=== PATIENT | female | born 1945 | race Caucasian/White ===

== ENCOUNTER 2018-04-15 18:42 | Emergency (ER) | payer MEDICARE, OTHER ==
[2018-04-15 19:40] LABS: ABS Basophils 0.1 10^3/ul (0-0.2); ABS Eosinophils 0.1 10^3/ul (0-0.6); ABS Lymphocytes 2.8 10^3/ul (1.0-4.8); ABS Monocytes 0.5 10^3/ul (0-0.8); ABS Neutrophils 11.1 10^3/ul (1.5-7.7); ABS Nucleated RBC 0 10^3/ul; Eosinophil % 0.9 % (0-6); Hematocrit 37 % (35-47); Hemoglobin 12.3 g/dl (12.0-16.0); Lymphocyte % 19.1 % (25-47); Mean Corpuscular HGB Conc 33 g/dl (31-36); Mean Corpuscular Hemoglobin 26 pg (27-31); Mean Corpuscular Volume 79 fL (80-97); Mean Platelet Volume 8.7 um3 (7.4-10.4); Nucleated Red Blood Cells % 0; Platelet Count 191 10^3/ul (150-450); Red Blood Count 4.67 10^6/ul (4.00-5.40); Red Cell Distribution Width 14 % (10.5-15); White Blood Count 14.6 10^3/ul (3.5-10.8)
[2018-04-15 19:55] LABS: INR 0.94 (0.77-1.02)
[2018-04-15 19:59] LABS: EGFR Non-African American 64.4 (>60)
[2018-04-15] MEDS ORDERED: fentaNYL* 50 MCG/ML 2 ML VIAL (100 MCG VIAL) IV SLOW PU ONE (20:22)
--- OUTSIDE RECORDS SUMMARY | 2018-04-15 20:26 | XMS REPORT | Continuity of Care Document ---
:1945 External Reference #:[id number] Author Name Farzaneh Wilson Care Team Providers Name Role Phone BILLY Camarena Care Team Information Pool Attendant Unavailable Payers Type Date Identification Numbers Payment Provider Subscriber Effective: Policy Number: Family HL Jenni Tidwell 2012 [id number] [employer] Expires: 2012 PayID: [id number] [address] [address] [place] [address] Expires: 2013 Policy Number: [id number] Medicare - Bswny d Jenni Tidwell PayID: [id number] [address] [place] [address] Effective: 2013 Policy Number: [facility] Jenni Tidwell [id number] [facility] Group Number: [id number] [address] [address] PayID: [id number] [place] [address] Effective: 2014 Policy Number: Medicaid After Jenni Tidwell [id number] Medicare Expires: 2017 Group Name: 2 1 [address] PayID: [id number] [place] [address] Advance Directives Type Date Description Status Comment Other Directive 01/12/2014 Health Care Proxy Current and Verified Problems Date Description Provider Status Onset: 06/06/2015 Diabetic peripheral neuropathy BILLY Camarena Active associated with type 2 diabetes mellitus Onset: 06/06/2015 Type 2 diabetes mellitus BILLY Camarena Active Onset: 08/22/2015 Primary fibromyalgia syndrome Khadra Willett, 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 Active Family History Description No Information Available Social History Type Date Description Comments Sex Unknown Lives With Alone lives in [facility], first floor apartment with a walk in shower Diet Healthy, Well Balanced tries to eat a diebetic diet based in the plate method Pets 1 dog cocker spaniel Tobacco Use Start: Unknown Never Smoked Cigarettes ETOH Use Rarely consumes alcohol Recreational Drug Use Denies Drug Use Tobacco Use Start: Unknown Patient has never smoked Smoking Status Reviewed: 04/27/16 Patient has never smoked Enjoy Exercising Enjoys exercising she is walking every day, someties her arthritis slows her down, she thinks this helps her fibromyalgia Allergies, Adverse Reactions, Alerts Description No Known Drug Allergies Medications Medication Date Status Form Strength Qnty SIG Indications Ordering Provider Luis Fernando Banks 02/08 Active Solution 300Unit/M 3ml inject 20 E11.65 Pen-Injec L units, Marco Willett, t increase by 2 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 units every other day until fasting sugars are 80-120...max daily dose 80 units Pen Hominy 02/08 Active Misc 31G X 6 100un use as E11.65 nt mm its directed with Marco Willett, insulin pen 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 once daily and as needed. Freestyle 10/06 Active Kit W/Device 1unit use as E11.9 Shawnti Insulinx Blood s needed. DX Marco Willett, Glucose code E11.9 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 Monitoring System Freestyle 10/01 Active Strips 50uni up to three Shawnti Insulinx Blood ts times a day Marco Willett, Glucose Test or as needed 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 Strips dx code e11.65 Lyrica 05/18 Active Capsules 150mg 60cap take one s capsule by Shortle, mouth twice a FILM MOUNTER day; maximum daily dose=2 Lipitor Active Tablets 20mg 90tab take 1 by s mouth daily Marco Willett, for 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 cholesterol Lyrica 08/06 Active Capsules 75mg 90cap take one M60.80 s capsule by Marco Willett, mouth every 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 morning take two capsules by mouth at bedtime; maximum daily dose=3 Cpap 05/16 Active replacement G47.33 hose, mask Marco Willett, and any other 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 needed parts dx: g47.33 Freestyle Lite 06/19 Active Strip 50uni Use as Shawnti Test ts Directed To Marco Willett, Test Blood 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 Sugars Daily And as Needed Depend 06/11 Active Misc 90uni wear daily nti ts for urine Marco Willett [employer] incontinence, 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 Large/X-Large change as Max Absorb needed Caltrate 600+D 12/07 Active Tablets 600-400mg -Unit Marco Willett 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 Multi Complete 12/07 Active Capsules daily Marco Willett 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 Nabumetone 09/05 Active Tablets 750mg 60tab take two M15.0 s tablets by Marco Willett mouth every 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 morning Cpap 05/19 Active 12CM wear QHS while Marco Willett, sleeping 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 Cymbalta 01/[address] 60mg 30cap take one F33.9 Part s capsule by Marco Willett mouth every 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 day Meclizine HCL 10/19 Hx Tablets 25mg 30tab 1 take by Kyle s mouth tablet Heetderks - 3 times per MD 01/11 day for sensation of motion Oxycodone HCL 11/07 Hx Tablets 5mg 60tab 1 or 2 by M17.9 s mouth three Marco Willett, - times daily 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 06/10 if needed for severe pain, replaces hydrocodone Lyrica 07/02 Hx Capsules 150mg 60cap Take One M60.80 s Capsule By Marco Willett, - Mouth Twice A 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 08/06 Day; Maximum Daily Dose=2 Diabetic Shoes 01/11 Hx 1Pair custom fit 250.00 diabetic Marco Willett - shoes dx 250 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 01/21 Lyrica 01/04 Hx Capsules 75mg 90cap 1 by mouth 729.1 s three times Marco Willett, - daily for 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 07/02 pain /2014 Lyrica 12/18 Hx Capsules 150mg 60cap 1 by mouth 729.1 s twice daily Marco Willett, - 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 01/04 Lyrica 12/04 Hx Capsules 75mg 60cap 1 by mouth 844.9 s twice a day Marco Willett, - 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 12/06 Oxycodone HCL 12/04 Hx Tablets 5mg 20twe 1 or 2 before 844.9 nty bed if needed Marco Willett, - for pain 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 06/06 Clarithromycin 11/07 Hx Tablets 500mg 20tab 1 by mouth s twice a day x Patricia, - 10 days 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 11/07 Triamcinolone 10/15 Hx Cream 0.5% 15gm apply small 782.9 [facility] Acet amount to Marco Willett, - affected area 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 06/10 twice daily /2016 Diabetic Shoes 08/14 Hx 1Pair custom fit diabetic Marco Willett, - shoes 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 08/24 Metformin HCL 06/26 Hx Tablets 500mg 60tab take one s tablet by Marco Willett, - mouth twice a 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 12/18 day with Lyrica 05/15 Hx Capsules 75mg 60cap 1 by mouth 729.1 s twice a day Marco Willett, - 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 10/15 Vitamin B 12/07 Hx Tablets daily Marco Willett, - 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 01/11 Zostavax 06/08 Hx Solution [id number] QS inject 0.65ml V70.0 Rec 0.65ML into Marco Willett, - subqutaneous 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 06/06 tissue once /2014 Free Style Lite 05/04 Hx Test 50uni use to test Strips ts blood sugar Marco Willett, - daily and as [employer]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 10/01 Meclizine HCL 10/18 Hx Tablets 25mg 30tab 1 po q6hr prn 386.11 wnt s dizziness Marco Willett, - 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 05/04 Ondansetron Odt 10/18 Hx Tablets 8mg 30tab 1 po tid prn 386.11 wnt Dispers s nausea Marco Willett, - 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 05/04 Cyclobenzaprine 09/23 Hx Tablets 10mg 30tab 1/2 or 1 po 724.5 Shawnti HCL s tid for Marco Willett, - muscle spasm, [employer]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 06/08 will cause tiredness Lyrica 09/05 Hx Capsules 75mg 60cap 1 po qhs for 729.1 wnti s one week then Marco Willett, - increase to 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 06/08 Metformin HCL 01/31 Hx Tablets 500mg 60tab take 1 tablet s by mouth Marco Willett, - twice a day 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 05/19 with Cymbalta 01/[address] 60mg 1 po qd Part Marco Willett, - [employer]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 01/27 Aleve 01/27 Hx Capsules 220mg 1 or 2 bid 715.09 Marco Willett, - [employer]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 09/05 Medications Administered in Office Medication Date Status Form Strength Qnty SIG Indications Ordering Provider Rabies Vaccine Administered Injection Unknown (Received 014 Elsewhere) Rabies Vaccine Administered Injection Unknown (Received 014 Elsewhere) Rabies Vaccine Administered Injection Unknown (Received 014 Elsewhere) Rabies Vaccine Administered Injection Unknown (Received 014 Elsewhere) Rabies Vaccine Administered Injection Unknown (Received 014 Elsewhere) Immunizations CPT Code Status Date Vaccine Lot # [id number] Given 06/10/2017 Influenza Virus Vaccine, Quadrivalent, 3 Yr > [id number] Quad, Preserv Free 54089 Given 04/27/2016 Influenza Vaccine High Dose PF [id number] 11604 Given 09/16/2015 Tdap (Adacel) [id number] 59186 Given 06/06/2015 Influenza Virus Vaccine, Quadrivalent, 3 Yr > [id number] Quad, Preserv Free 84797 Given 06/11/2014 Influenza Virus Vaccine, Quadrivalent, 3 Yr > [id number] Quad, Preserv Free 40866 Given 06/11/2014 Prevnar-13 Pneumococcal Conjugate Vaccine [id number] 23489 Given 06/08/2013 Pneumovax 23 (PPSV23) 65+ years or high risk 2 to [id number] 66 year old 32256 Given 05/26/2013 Zoster Vaccine 41965 Given 05/04/2013 Influenza Vaccine-Preservative Free 3 Yrs And [id number] Above 49715 Given 05/19/2012 Influenza Vaccine-Preservative Free 3 Yrs And [id number] Above Vital Signs Date Vital Result Comment 03/04/2018 11:11am Weight 263.00 lb Weight 119.297 kg BP Systolic 140 mmHg BP Diastolic 78 mmHg Heart Rate 80 /min Body Temperature 97.5 F Respiratory Rate 16 /min 02/08/2018 11:01am Weight 265.00 lb Weight 120.204 kg BP Systolic 134 mmHg BP Diastolic 78 mmHg Heart Rate 82 /min Body Temperature 97.2 F Respiratory Rate 16 /min 01/11/2018 1:50pm Weight 265.00 lb Weight 120.204 kg BP Systolic 138 mmHg BP Diastolic 92 mmHg Heart Rate 84 /min Body Temperature 98.1 F Respiratory Rate 18 /min O2 % BldC Oximetry 98 % Ra 06/10/2017 11:07am Weight 267.00 lb Weight 121.111 kg BP Systolic 160 mmHg BP Diastolic 90 mmHg Heart Rate 93 /min Body Temperature 98.2 F Respiratory Rate 20 /min O2 % BldC Oximetry 98 % 09/03/2016 3:01pm Weight 262.00 lb Weight 118.843 kg BP Systolic 140 mmHg BP Diastolic 60 mmHg Heart Rate 94 /min Body Temperature 97.6 F Respiratory Rate 16 /min O2 % BldC Oximetry 95 % 04/27/2016 2:59pm Weight 201.00 lb Weight 91.174 kg BP Systolic 142 mmHg BP Diastolic 65 mmHg Heart Rate 80 /min O2 % BldC Oximetry 98 % 03/03/2016 3:15pm Weight 250.00 lb Weight 113.400 kg BP Systolic 144 mmHg BP Diastolic 66 mmHg Heart Rate 88 /min Body Temperature 99.3 F 01/23/2016 11:08am Weight 257.00 lb Weight 116.575 kg BP Systolic 140 mmHg BP Diastolic 80 mmHg Heart Rate 86 /min 12/19/2015 2:17pm Weight 257.00 lb Weight 116.575 kg BP Systolic 138 mmHg BP Diastolic 86 mmHg Heart Rate 84 /min Body Temperature 98.3 F 11/14/2015 1:30pm BP Systolic 120 mmHg BP Diastolic 70 mmHg Heart Rate 59 /min O2 % BldC Oximetry 98 % 11/08/2015 1:57pm Weight 257.00 lb Weight 116.575 kg BP Systolic 164 mmHg BP Diastolic 78 mmHg Heart Rate 88 /min Body Temperature 98.1 F 09/16/2015 1:43pm Weight 250.00 lb Weight 113.400 kg BP Systolic 159 mmHg BP Diastolic 70 mmHg Heart Rate 80 /min Height 61.5 inches 5'1.50" BMI (Body Mass Index) 46.5 kg/m2 06/06/2015 10:32am Weight 248.00 lb Weight 112.493 kg BP Systolic 136 mmHg BP Diastolic 84 mmHg Heart Rate 72 /min 03/14/2015 9:21am Weight 258.00 lb Weight 117.029 kg BP Systolic 150 mmHg BP Diastolic 80 mmHg Heart Rate 72 /min 01/22/2015 11:17am Weight 254.00 lb Weight 115.214 kg BP Systolic 170 mmHg BP Diastolic 78 mmHg Heart Rate 88 /min 01/11/2015 10:12am Weight 251.00 lb Weight 113.854 kg BP Systolic 144 mmHg BP Diastolic 70 mmHg Heart Rate 80 /min 12/18/2014 10:06am Weight 253.00 lb Weight 114.761 kg BP Systolic 172 mmHg BP Diastolic 76 mmHg Heart Rate 72 /min 12/04/2014 10:17am Weight 250.00 lb Weight 113.400 kg BP Systolic 130 mmHg BP Diastolic 88 mmHg Heart Rate 108 /min Body Temperature 98.3 F 11/12/2014 10:01am Weight 248.00 lb Weight 112.493 kg BP Systolic 160 mmHg BP Diastolic 72 mmHg Heart Rate 72 /min 10/15/2014 2:29pm Weight 251.00 lb Weight 113.854 kg BP Systolic 160 mmHg BP Diastolic 84 mmHg Heart Rate 88 /min 08/14/2014 11:43am Weight 258.00 lb Weight 117.029 kg BP Systolic 148 mmHg BP Diastolic 78 mmHg Heart Rate 80 /min 06/11/2014 8:50am Weight 262.00 lb Weight 118.843 kg BP Systolic 168 mmHg BP Diastolic 70 mmHg Heart Rate 84 /min Height 62 inches 5'2" BMI (Body Mass Index) 47.9 kg/m2 05/15/2014 11:03am Weight 259.00 lb Weight 117.482 kg BP Systolic 180 mmHg BP Diastolic 80 mmHg Heart Rate 94 /min 01/12/2014 1:53pm Weight 258.00 lb Weight 117.029 kg BP Systolic 144 mmHg BP Diastolic 86 mmHg Heart Rate 76 /min Body Temperature 97.4 F O2 % BldC Oximetry 96 % 12/07/2013 10:09am Weight 257.00 lb Weight 116.575 kg BP Systolic 142 mmHg BP Diastolic 78 mmHg Heart Rate 88 /min 06/08/2013 9:11am Weight 252.00 lb Weight 114.307 kg BP Systolic 152 mmHg BP Diastolic 78 mmHg Heart Rate 84 /min Height 62 inches 5'2" BMI (Body Mass Index) 46.1 kg/m2 05/04/2013 10:13am Weight 255.00 lb Weight 115.668 kg BP Systolic 136 mmHg BP Diastolic 74 mmHg Heart Rate 80 /min Height 61.25 inches 5'1.25" BMI (Body Mass Index) 47.8 kg/m2 01/17/2013 8:39am Weight 256.00 lb Weight 116.122 kg BP Systolic 166 mmHg BP Diastolic 76 mmHg Heart Rate 92 /min Body Temperature 99.4 F 10/18/2012 11:50am Weight 258.00 lb Weight 117.029 kg BP Systolic 140 mmHg BP Diastolic 90 mmHg Heart Rate 80 /min Body Temperature 98.2 F 09/23/2012 12:00pm Weight 259.00 lb Weight 117.482 kg BP Systolic 130 mmHg BP Diastolic 70 mmHg Heart Rate 100 /min Body Temperature 97.6 F 09/05/2012 2:56pm Weight 257.00 lb Weight 116.575 kg BP Systolic 140 mmHg BP Diastolic 84 mmHg Heart Rate 80 /min 05/19/2012 10:11am Weight 250.00 lb Weight 113.400 kg BP Systolic 134 mmHg BP Diastolic 76 mmHg Heart Rate 108 /min Body Temperature 97.3 F 03/18/2012 10:12am Weight 247.00 lb Weight 112.039 kg BP Systolic 150 mmHg BP Diastolic 90 mmHg Heart Rate 100 /min 01/28/2012 2:11pm Weight 244.00 lb Weight 110.678 kg BP Systolic 130 mmHg BP Diastolic 74 mmHg Heart Rate 88 /min Height 62 inches 5'2" BMI (Body Mass Index) 44.6 kg/m2 O2 % BldC Oximetry 98 % Results Test Date Facility Test Result H/L Range Note Laboratory test 03/04/2018 [facility] Vitamin D 17.9 ng/mL Low 20-50 1 finding [phone] Total 25(Oh) Erythrocyte Sed Rate 48 mm/Hr High 0-40 2 Vitamin B12 473 pg/mL 180-914 3 Laboratory test 01/11/2018 [facility] TSH (Thyroid 2.22 mcIU/mL 0.34-5.60 4 finding [phone] Stim Horm) Hemoglobin A1c (Glyco HGB) 9.9 % High 4.0-5.6 5 Hepatitis C Antibody Nonreactive Nonreactive 6 CBC Auto Diff 01/11/2018 [facility] White Blood 10.6 10^3/uL 3.5-10.8 [phone] Count Red Blood Count 4.93 10^6/uL 4.00-5.40 Hemoglobin 13.3 g/dL 12.0-16.0 Hematocrit 40 % 35-47 Mean Corpuscular Volume 80 fL 80-97 Mean Corpuscular Hemoglobin 27 pg 27-31 Mean Corpuscular HGB Conc 34 g/dL 31-36 Red Cell Distribution Width 14 % 10.5-15 Platelet Count 213 10^3/uL 150-450 Mean Platelet Volume 9.2 um3 7.4-10.4 Abs Neutrophils 7.2 10^3/uL 1.5-7.7 Abs Lymphocytes 2.8 10^3/uL 1.0-4.8 Abs Monocytes 0.4 10^3/uL 0-0.8 Abs Eosinophils 0.2 10^3/uL 0-0.6 Abs Basophils 0.1 10^3/uL 0-0.2 Abs Nucleated RBC 0 10^3/uL Granulocyte % 67.8 % 38-83 Lymphocyte % 26.3 % 25-47 Monocyte % 3.7 % 0-7 Eosinophil % 1.5 % 0-6 Basophil % 0.7 % 0-2 Nucleated Red Blood Cells % 0.1 Lipid Profile 01/11/2018 [facility] Triglycerides 384 mg/dL 7 (Trig/Chol/HDL) [phone] Cholesterol 186 mg/dL 8 HDL Cholesterol 67.0 mg/dL 9 LDL Cholesterol 42 mg/dL 10 Comp Metabolic Panel 01/11/2018 [facility] Sodium 138 mmol/L 135-145 [phone] Potassium 4.1 mmol/L 3.5-5.0 Chloride 101 mmol/L 101-111 Co2 Carbon Dioxide 27 mmol/L 22-32 Anion Gap 10 mmol/L 2-11 Glucose 227 mg/dL High 70-100 Blood Urea Nitrogen 20 mg/dL 6-24 Creatinine 0.70 mg/dL 0.51-0.95 BUN/Creatinine Ratio 28.6 High 8-20 Calcium 10.3 mg/dL 8.6-10.3 Total Protein 7.1 g/dL 6.4-8.9 Albumin 3.9 g/dL 3.2-5.2 Globulin 3.2 g/dL 2-4 Albumin/Globulin Ratio 1.2 1-3 Total Bilirubin 0.30 mg/dL 0.2-1.0 Alkaline Phosphatase 121 U/L High 34-104 Alt 18 U/L 7-52 Ast 17 U/L 13-39 Egfr Non- 82.7 >60 Egfr 106.4 >60 11 Laboratory test 09/21/2017 In House Lab Glucose By 347 High 78-110 finding [phone] Moniter Statin 12/25/2016 [facility] Ast (Sgot) 21 U/L 13- 39 12 [phone] Alt 20 U/L 7-52 13 Lipid Profile 12/25/2016 [facility] Triglycerides 383 mg/dL 14 (Trig/Chol/HDL) [phone] Cholesterol 169 mg/dL 15 HDL Cholesterol 68.5 mg/dL 16 LDL Cholesterol 24 mg/dL 17 CBC Auto 09/03/2016 [facility] White Blood 11.1 10^3/ uL High 3.5-10.8 Diff [phone] Count Red Blood Count 4.98 10^6/uL 4.0-5.4 Hemoglobin 13.1 g/dL 12.0-16.0 Hematocrit 40 % 35-47 Mean Corpuscular Volume 81 fL 80-97 Mean Corpuscular Hemoglobin 26 pg Low 27-31 Mean Corpuscular HGB Conc 33 g/dL 31-36 Red Cell Distribution Width 15 % 10.5-15 Platelet Count 201 10^3/uL 150-450 Mean Platelet Volume 9 um3 7.4-10.4 Abs Neutrophils 7.2 10^3/uL 1.5-7.7 Abs Lymphocytes 3.3 10^3/uL 1.0-4.8 Abs Monocytes 0.5 10^3/uL 0-0.8 Abs Eosinophils 0.1 10^3/uL 0-0.6 Abs Basophils 0 10^3/uL 0-0.2 Abs Nucleated RBC 0 10^3/uL Granulocyte % 64.6 % 38-83 Lymphocyte % 29.6 % 25-47 Monocyte % 4.2 % 1-9 Eosinophil % 1.3 % 0-6 Basophil % 0.3 % 0-2 Nucleated Red Blood Cells % 0 Comp Metabolic Panel 09/03/2016 [facility] Sodium 136 mmol/L 133-145 [phone] Potassium 4.4 mmol/L 3.5-5.0 Chloride 99 mmol/L Low 101-111 Co2 Carbon Dioxide 31 mmol/L 22-32 Anion Gap 6 mmol/L 2-11 Glucose 172 mg/dL High 70-100 Blood Urea Nitrogen 22 mg/dL 6-24 Creatinine 0.83 mg/dL 0.51-0.95 BUN/Creatinine Ratio 26.5 High 8-20 Calcium 10.5 mg/dL High 8.6-10.3 Total Protein 7.3 g/dL 6.4-8.9 Albumin 4.1 g/dL 3.2-5.2 Globulin 3.2 g/dL 2-4 Albumin/Globulin Ratio 1.3 1-3 Total Bilirubin 0.30 mg/dL 0.2-1.0 Alkaline Phosphatase 104 U/L 34-104 Alt 17 U/L 7-52 Ast 18 U/L 13-39 Egfr Non- 68.4 >60 Egfr 87.9 >60 18 Lipid Profile 09/03/2016 [facility] Triglycerides 639 mg/dL 19 (Trig/Chol/HDL) [phone] Cholesterol 243 mg/dL 20 HDL Cholesterol 72.1 mg/dL 21 LDL Cholesterol (SEE NOTE) mg/dL 22 Laboratory test 09/03/2016 [facility] Hemoglobin A1c 6.9 % High Less 23 finding [phone] (Glyco HGB) than 6.0 Laboratory test 04/27/2016 [facility] Hemoglobin A1c 6.6 % High Less 24 finding [phone] (Glyco HGB) than 6.0 Lipid Profile 04/27/2016 [facility] Triglycerides 391 25 (Trig/Chol/HDL) [phone] mg/dL Cholesterol 203 mg/dL 26 HDL Cholesterol 68.6 mg/dL 27 LDL Cholesterol 56 mg/dL 28 Basic Metabolic 04/27/2016 [facility] Sodium 136 mmol /L 133-145 Panel [phone] Potassium 4.6 mmol/L 3.5-5.0 Chloride 98 mmol/L Low 101-111 Co2 Carbon Dioxide 31 mmol/L 22-32 Anion Gap 7 mmol/L 2-11 Glucose 117 mg/dL High 70-100 Blood Urea Nitrogen 26 mg/dL High 6-24 Creatinine 0.89 mg/dL 0.51-0.95 BUN/Creatinine Ratio 29.2 High 8-20 Calcium 10.0 mg/dL 8.6-10.3 Egfr Non- 63.1 >60 Egfr 81.1 >60 29 Statin 11/06/2015 [facility] Ast (Sgot) 16 U/L 13- 39 [phone] Alt (SGPT) 18 U/L 7-52 Lipid Profile 11/06/2015 [facility] Triglycerides 237 mg/dL 30 (Trig/Chol/HDL) [phone] Cholesterol 163 mg/dL 31 HDL Cholesterol 75.8 mg/dL 32 LDL Cholesterol 40 mg/dL 33 Laboratory test 09/21/2015 [facility] Calcium 10.1 mg /dL 8.6-10.3 finding [phone] Pthi 09/21/2015 [facility] Calcium (PTH 10.2 mg/dL 8.6-10.3 [phone] Intact) PTH Intact 8.8 pmol/L 1.3-9.3 Laboratory test 09/21/2015 [facility] Calcium 5.17 mg /dL 4.65-5.28 finding [phone] Ionized CBC Auto Diff 09/16/2015 [facility] White Blood 8.9 10^3/uL 3.5-10.8 [phone] Count Red Blood Count 4.72 10^6/uL 4.0-5.4 Hemoglobin 12.7 g/dL 12.0-16.0 Hematocrit 39 % 35-47 Mean Corpuscular Volume 82 fL 80-97 Mean Corpuscular Hemoglobin 27 pg 27-31 Mean Corpuscular HGB Conc 33 g/dL 31-36 Red Cell Distribution Width 14 % 10.5-15 Platelet Count 194 10^3/uL 150-450 Mean Platelet Volume 9 um3 7.4-10.4 Abs Neutrophils 5.7 10^3/uL 1.5-7.7 Abs Lymphocytes 2.7 10^3/uL 1.0-4.8 Abs Monocytes 0.4 10^3/uL 0-0.8 Abs Eosinophils 0.1 10^3/uL 0-0.6 Abs Basophils 0 10^3/uL 0-0.2 Abs Nucleated RBC 0.01 10^3/uL Granulocyte % 64.3 % 38-83 Lymphocyte % 30.1 % 25-47 Monocyte % 4.1 % 1-9 Eosinophil % 1.3 % 0-6 Basophil % 0.2 % 0-2 Nucleated Red Blood Cells % 0.1 Comp Metabolic Panel 09/16/2015 [facility] Sodium 136 mmol/L 133-145 [phone] Potassium 4.2 mmol/L 3.5-5.0 Chloride 98 mmol/L Low 101-111 Glucose 141 mg/dL High 70-100 Blood Urea Nitrogen 26 mg/dL High 6-24 Creatinine 0.86 mg/dL 0.51-0.95 BUN/Creatinine Ratio 30.2 High 8-20 Calcium 10.6 mg/dL High 8.6-10.3 Total Protein 7.1 g/dL 6.4-8.9 Albumin 4.1 g/dL 3.2-5.2 Globulin 3.0 g/dL 2-4 Albumin/Globulin Ratio 1.4 1-3 Total Bilirubin 0.30 mg/dL 0.2-1.0 Alkaline Phosphatase 93 U/L 34-104 Alt 15 U/L 7-52 Ast 16 U/L 13-39 Egfr Non- 65.8 >60 Egfr 84.6 >60 34 Co2 Carbon Dioxide 31 mmol/L 22-32 Anion Gap 7 mmol/L 2-11 Lipid Profile 09/16/2015 [facility] Triglycerides 552 mg/dL 35 (Trig/Chol/HDL) [phone] Cholesterol 248 mg/dL 36 HDL Cholesterol 60.1 mg/dL 37 Laboratory test 09/16/2015 [facility] TSH (Thyroid 1.17 ?IU/mL 0.34-5.60 38 finding [phone] Stim Horm) Hemoglobin A1c (Glyco HGB) 6.6 % High Less than 6.0 39 Laboratory test 06/09/2015 [facility] C. difficile SEE RESULT 40 finding [phone] PCR BELOW CBC Auto Diff 06/09/2015 [facility] White Blood 5.9 10^3/uL 4.8-10 [phone] Count .8 Red Blood Count 5.01 10^6/uL 4.0-5.4 Hemoglobin 13.5 g/dL 12.0-16.0 Hematocrit 41 % 35-47 Mean Corpuscular Volume 82 fL 80-97 Mean Corpuscular Hemoglobin 27 pg 27-31 Mean Corpuscular HGB Conc 33 g/dL 31-36 Red Cell Distribution Width 14 % 10.5-15 Platelet Count 186 10^3/uL 150-450 Mean Platelet Volume 8 um3 7.4-10.4 Abs Neutrophils 3.4 10^3/uL 1.5-7.7 Abs Lymphocytes 1.9 10^3/uL 1.0-4.8 Abs Monocytes 0.5 10^3/uL 0-0.8 Abs Eosinophils 0.1 10^3/uL 0-0.6 Abs Basophils 0 10^3/uL 0-0.2 Abs Nucleated RBC 0 10^3/uL Granulocyte % 57.8 % 38-83 Lymphocyte % 31.8 % 25-47 Monocyte % 8.6 % 1-9 Eosinophil % 1.5 % 0-6 Basophil % 0.3 % 0-2 Nucleated Red Blood Cells % 0 Comp Metabolic Panel 06/09/2015 [facility] Sodium 136 mmol/L 133-145 [phone] Potassium 3.7 mmol/L 3.5-5.0 Chloride 101 mmol/L 101-111 Co2 Carbon Dioxide 27 mmol/L 22-32 Anion Gap 8 mmol/L 2-11 Glucose 123 mg/dL High 70-100 Blood Urea Nitrogen 21 mg/dL 6-24 Creatinine 1.01 mg/dL High 0.51-0.95 BUN/Creatinine Ratio 20.8 High 8-20 Calcium 9.8 mg/dL 8.6-10.3 Total Protein 7.5 g/dL 6.4-8.9 Albumin 4.0 g/dL 3.2-5.2 Globulin 3.5 g/dL 2-4 Albumin/Globulin Ratio 1.1 1-3 Total Bilirubin 0.30 mg/dL 0.2-1.0 Alkaline Phosphatase 91 U/L 34-104 Alt 19 U/L 7-52 Ast 23 U/L 13-39 Egfr Non- 54.7 >60 Egfr 70.3 >60 41 Laboratory test 06/09/2015 [facility] Lipase 16 U/L 11.0-82.0 finding [phone] C Reactive Protein 67.96 mg/L High < 5.00 42 Lactic Acid 1.8 mmol/L 0.5-2.2 Urinalysis Profile 06/09/2015 [facility] Urine Color Yellow [phone] Urine Appearance Cloudy Urine Specific Brodnax 1.018 1.010-1.030 Urine pH 5.0 5-9 Urine Urobilinogen Negative Negative Urine Ketones Negative Negative Urine Protein Negative Negative Urine Leukocytes 3+ Negative Urine Blood 1+ Negative Urine Nitrite Negative Negative Urine Bilirubin Negative Negative Urine Glucose Negative Negative Urine White Blood Cell 3+(>20/hpf) Absent Urine Red Blood Cell 2+(6-10/hpf) Absent Urine Bacteria 1+ Absent Urine Squamous Epithelial Cell Present Absent Urine Hyaline Casts Present Absent Laboratory test 06/09/2015 [facility] Urine Culture SEE RESULT 43 finding [phone] BELOW CBC Auto Diff 03/14/2015 [facility] White Blood 8.4 10^3/uL 4.8-10 [phone] Count .8 Red Blood Count 4.98 10^6/uL 4.0-5.4 Hemoglobin 13.2 g/dL 12.0-16.0 Hematocrit 41 % 35-47 Mean Corpuscular Volume 82 fL 80-97 Mean Corpuscular Hemoglobin 26 pg Low 27-31 Mean Corpuscular HGB Conc 32 g/dL 31-36 Red Cell Distribution Width 14 % 10.5-15 Platelet Count 215 10^3/uL 150-450 Mean Platelet Volume 9 um3 7.4-10.4 Abs Neutrophils 5.4 10^3/uL 1.5-7.7 Abs Lymphocytes 2.5 10^3/uL 1.0-4.8 Abs Monocytes 0.4 10^3/uL 0-0.8 Abs Eosinophils 0.1 10^3/uL 0-0.6 Abs Basophils 0 10^3/uL 0-0.2 Abs Nucleated RBC 0 10^3/uL Granulocyte % 63.8 % 38-83 Lymphocyte % 29.4 % 25-47 Monocyte % 4.6 % 1-9 Eosinophil % 1.7 % 0-6 Basophil % 0.5 % 0-2 Nucleated Red Blood Cells % 0 Laboratory test 03/14/2015 [facility] Hemoglobin A1c 7.2 % High Less than 44 finding [phone] (Glyco HGB) 6.0 Basic Metabolic 03/14/2015 [facility] Sodium 138 133-145 Panel [phone] mmol/L Potassium 4.5 mmol/L 3.5-5.0 Chloride 101 mmol/L 101-111 Co2 Carbon Dioxide 28 mmol/L 22-32 Anion Gap 9 mmol/L 2-11 Glucose 147 mg/dL High 70-100 Blood Urea Nitrogen 20 mg/dL 6-24 Creatinine 0.79 mg/dL 0.51-0.95 BUN/Creatinine Ratio 25.3 High 8-20 Calcium 10.3 mg/dL 8.6-10.3 Egfr Non- 72.6 >60 Egfr 93.4 >60 45 Comp Metabolic Panel 11/12/2014 [facility] Sodium 137 mmol/L 133-145 [phone] Potassium 4.7 mmol/L 3.5-5.0 Chloride 99 mmol/L Low 101-111 Co2 Carbon Dioxide 29 mmol/L 22-32 Anion Gap 9 mmol/L 2-11 Glucose 136 mg/dL High 70-100 Blood Urea Nitrogen 18 mg/dL 6-24 Creatinine 0.79 mg/dL 0.51-0.95 BUN/Creatinine Ratio 22.8 High 8-20 Calcium 10.4 mg/dL High 8.6-10.3 Total Protein 7.2 g/dL 6.4-8.9 Albumin 4.1 g/dL 3.2-5.2 Globulin 3.1 g/dL 2-4 Albumin/Globulin Ratio 1.3 1-3 Total Bilirubin 0.40 mg/dL 0.2-1.0 Alkaline Phosphatase 103 U/L 34-104 Alt 17 U/L 7-52 Ast 20 U/L 13-39 Egfr Non- 72.8 >60 Egfr 93.6 >60 46 Laboratory test 11/12/2014 [facility] Hemoglobin A1c 6.8 % High Less than 47 finding [phone] 6.0 CBC No Diff 11/12/2014 [facility] White Blood 9.9 4.8-10.8 [phone] Count 10^3/uL Red Blood Count 5.11 10^6/uL 4.0-5.4 Hemoglobin 14.1 g/dL 12.0-16.0 Hematocrit 42 % 35-47 Mean Corpuscular Volume 81 fL 80-97 Mean Corpuscular Hemoglobin 28 pg 27-31 Mean Corpuscular HGB Conc 34 g/dL 31-36 Red Cell Distribution Width 15 % 10.5-15 Platelet Count 226 10^3/uL 150-450 Mean Platelet Volume 9 um3 7.4-10.4 Laboratory test 08/28/2014 [facility] Calcium 11.0 mg /dL High 8.6-10.3 finding [phone] Pthi 08/28/2014 [facility] PTH Intact 5.6 pmol/L 1.3-9.3 [phone] Calcium (PTH Intact) 11.0 mg/dL High 8.6-10.3 Basic Metabolic 08/28/2014 [facility] Sodium 138 mmol /L 133-145 Panel [phone] Potassium 4.1 mmol/L 3.5-5.0 Chloride 100 mmol/L Low 101-111 Co2 Carbon Dioxide 28 mmol/L 22-32 Anion Gap 10 mmol/L 2-11 Glucose 145 mg/dL High 70-100 Blood Urea Nitrogen 19 mg/dL 6-24 Creatinine 1.10 mg/dL High 0.51-0.95 BUN/Creatinine Ratio 17.3 8-20 Egfr Non- 49.7 >60 Egfr 63.9 >60 48 Basic Metabolic 08/14/2014 [facility] Sodium 136 mmol /L 133-145 Panel [phone] Potassium 4.4 mmol/L 3.5-5.0 Chloride 98 mmol/L Low 101-111 Co2 Carbon Dioxide 31 mmol/L 22-32 Anion Gap 7 mmol/L 2-11 Glucose 95 mg/dL 70-100 Blood Urea Nitrogen 18 mg/dL 6-24 Creatinine 0.75 mg/dL 0.51-0.95 BUN/Creatinine Ratio 24.0 High 8-20 Calcium 11.2 mg/dL High 8.6-10.3 Egfr Non- 77.3 >60 Egfr 99.4 >60 49 Urinalysis Profile 08/09/2014 [facility] Urine Color Straw [phone] Urine Appearance Cloudy Urine Specific [place] 1.018 1.010-1.030 Urine pH 5.0 5-9 Urine Urobilinogen Negative Negative Urine Ketones Negative Negative Urine Protein 2+(100 mg/dL) Negative Urine Leukocytes Negative Negative Urine Blood 3+ Negative * * Negative 50 Urine Nitrite Negative Negative Urine Bilirubin Negative Negative Urine Glucose Negative Negative Urine Red Blood Cell 3+(>10/hpf) Absent Urine Squamous Epithelial Cell Present Absent Laboratory test 08/09/2014 [facility] C Reactive 28.08 mg/L High < 5.00 51 finding [phone] Protein Comp Metabolic 08/09/2014 [facility] Sodium 133 mmol/ L 133-145 Panel [phone] Potassium 4.0 mmol/L 3.5-5.0 Chloride 94 mmol/L Low 101-111 Co2 Carbon Dioxide 28 mmol/L 22-32 Anion Gap 11 mmol/L 2-11 Glucose 165 mg/dL High 70-100 Blood Urea Nitrogen 27 mg/dL High 6-24 Creatinine 0.97 mg/dL High 0.51-0.95 BUN/Creatinine Ratio 27.8 High 8-20 Calcium 10.3 mg/dL 8.6-10.3 Total Protein 7.4 g/dL 6.4-8.9 Albumin 4.1 g/dL 3.2-5.2 Globulin 3.3 g/dL 2-4 Albumin/Globulin Ratio 1.2 1-3 Total Bilirubin 0.40 mg/dL 0.2-1.0 Alkaline Phosphatase 89 U/L 34-104 Alt 23 U/L 7-52 Ast 24 U/L 13-39 Egfr Non- 57.5 >60 Egfr 73.9 >60 52 CBC Auto 08/09/2014 [facility] White Blood 14.6 10^3/ uL High 4.8-10.8 Diff [phone] Count Red Blood Count 4.95 10^6/uL 4.0-5.4 Hemoglobin 13.2 g/dL 12.0-16.0 Hematocrit 40 % 35-47 Mean Corpuscular Volume 81 fL 80-97 Mean Corpuscular Hemoglobin 27 pg 27-31 Mean Corpuscular HGB Conc 33 g/dL 31-36 Red Cell Distribution Width 15 % 10.5-15 Platelet Count 204 10^3/uL 150-450 Mean Platelet Volume 9 um3 7.4-10.4 Abs Neutrophils 11.5 10^3/uL High 1.5-7.7 Abs Lymphocytes 2.2 10^3/uL 1.0-4.8 Abs Monocytes 0.8 10^3/uL 0-0.8 Abs Eosinophils 0.2 10^3/uL 0-0.6 Abs Basophils 0.1 10^3/uL 0-0.2 Abs Nucleated RBC 0.01 10^3/uL Granulocyte % 78.4 % 38-83 Lymphocyte % 14.7 % Low 25-47 Monocyte % 5.2 % 1-9 Eosinophil % 1.1 % 0-6 Basophil % 0.6 % 0-2 Nucleated Red Blood Cells % 0.1 Laboratory test 06/11/2014 [facility] Hemoglobin A1c 7.3 % High Less than 53 finding [phone] 6.0 Lipid Profile 06/11/2014 [facility] Triglycerides 348 54 (Trig/Chol/HDL) [phone] mg/dL Cholesterol 202 mg/dL 55 HDL Cholesterol 66.9 mg/dL 56 LDL Cholesterol 66 mg/dL 57 Urine DIP 06/11/2014 In House Lab Specific [place] 1.025 High 1.01-1.02 [phone] Urine pH 5 5-6 Leukocytes NEG Neg Urine Nitrites NEG Neg Total Protein, Urine +30 High Neg Urine Glucose NORM Norm Urine Ketones NEG Neg Urobilinogen NORM Norm Urine Bilirubin NEG Neg Urine Blood 250 High Neg CBC Auto Diff 05/15/2014 [facility] White Blood 10.6 10^3/uL 4.8-10.8 [phone] Count Red Blood Count 4.95 10^6/uL 4.0-5.4 Hemoglobin 13.2 g/dL 12.0-16.0 Hematocrit 40 % 35-47 Mean Corpuscular Volume 80 fL 80-97 Mean Corpuscular Hemoglobin 27 pg 27-31 Mean Corpuscular HGB Conc 33 g/dL 31-36 Red Cell Distribution Width 14 % 10.5-15 Platelet Count 230 10^3/uL 150-450 Mean Platelet Volume 9 um3 7.4-10.4 Abs Neutrophils 7.1 10^3/uL 1.5-7.7 Abs Lymphocytes 2.8 10^3/uL 1.0-4.8 Abs Monocytes 0.4 10^3/uL 0-0.8 Abs Eosinophils 0.1 10^3/uL 0-0.6 Abs Basophils 0 10^3/uL 0-0.2 Abs Nucleated RBC 0.01 10^3/uL Granulocyte % 67.6 % 38-83 Lymphocyte % 26.8 % 25-47 Monocyte % 4.1 % 1-9 Eosinophil % 1.1 % 0-6 Basophil % 0.4 % 0-2 Nucleated Red Blood Cells % 0.1 Comp Metabolic Panel 05/15/2014 [facility] Sodium 137 mmol/L 133-145 [phone] Potassium 4.4 mmol/L 3.7-5.6 Chloride 98 mmol/L Low 101-111 Co2 Carbon Dioxide 31 mmol/L 22-32 Anion Gap 8 mmol/L 2-11 Glucose 165 mg/dL High 70-100 Blood Urea Nitrogen 17 mg/dL 6-24 Creatinine 0.70 mg/dL 0.51-0.95 BUN/Creatinine Ratio 24.3 High 8-20 Calcium 10.5 mg/dL High 8.6-10.3 Total Protein 6.9 g/dL 6.4-8.9 Albumin 3.9 g/dL 3.2-5.2 Globulin 3.0 g/dL 2-4 Albumin/Globulin Ratio 1.3 1-3 Total Bilirubin 0.30 mg/dL 0.2-1.0 Alkaline Phosphatase 98 U/L 34-104 Alt 21 U/L 7-52 Ast 19 U/L 13-39 Egfr Non- 83.7 >60 Egfr 107.7 >60 58 Laboratory test 05/15/2014 [facility] C Reactive 28.47 mg/L High < 5.00 59 finding [phone] Protein Anti Double Stranded Dna Negative Negative Cyclic Citrullinated Pept IgG <15.6 U 60 Creatine Kinase 53 U/L 10-223 Lyme Western 05/15/2014 [facility] Lyme Disease Negative Negative Blot [phone] IgG Ab WB Lyme Disease IgG Bands Present No bands detecte <SEE NOTE> kDa 61 Lyme Disease IgM Ab WB Negative Negative Lyme Disease IgM Bands Present No bands detecte <SEE NOTE> kDa 62 Lyme Disease Interpretation See Comment 63 Laboratory test 05/15/2014 [facility] Rheumatoid Factor <15 IU/mL <15 64 finding [phone] Bess (Anti-Nuclear AB) Screen Negative Negative Comp Metabolic Panel 12/07/2013 [facility] Sodium 137 mmol/L 133-145 [phone] Potassium 4.6 mmol/L 3.7-5.6 Chloride 99 mmol/L Low 101-111 Co2 Carbon Dioxide 30 mmol/L 22-32 Anion Gap 8 mmol/L 2-11 Glucose 117 mg/dL High 70-100 Blood Urea Nitrogen 20 mg/dL 6-24 Creatinine 0.72 mg/dL 0.51-0.95 BUN/Creatinine Ratio 27.8 High 8-20 Calcium 10.1 mg/dL 8.6-10.3 Total Protein 7.3 g/dL 6.4-8.9 Albumin 4.0 g/dL 3.2-5.2 Globulin 3.3 g/dL 2-4 Albumin/Globulin Ratio 1.2 1-3 Total Bilirubin 0.30 mg/dL 0.2-1.0 Alkaline Phosphatase 100 U/L 34-104 Alt 17 U/L 7-52 Ast 18 U/L 13-39 Egfr Non- 81.0 >60 Egfr 104.2 >60 65 CBC Auto Diff 12/07/2013 [facility] White Blood 10.2 10^3/uL 4.8-10.8 [phone] Count Red Blood Count 4.96 10^6/uL 4.0-5.4 Hemoglobin 13.2 g/dL 12.0-16.0 Hematocrit 39 % 35-47 Mean Corpuscular Volume 79 fL Low 80-97 Mean Corpuscular Hemoglobin 27 pg 27-31 Mean Corpuscular HGB Conc 34 g/dL 31-36 Red Cell Distribution Width 14 % 10.5-15 Platelet Count 219 10^3/uL 150-450 Mean Platelet Volume 9 um3 7.4-10.4 Abs Neutrophils 6.5 10^3/uL 1.5-7.7 Abs Lymphocytes 3.0 10^3/uL 1.0-4.8 Abs Monocytes 0.5 10^3/uL 0-0.8 Abs Eosinophils 0.1 10^3/uL 0-0.6 Abs Basophils 0 10^3/uL 0-0.2 Abs Nucleated RBC 0.01 10^3/uL Granulocyte % 63.8 % 38-83 Lymphocyte % 29.7 % 25-47 Monocyte % 5.0 % 1-9 Eosinophil % 1.1 % 0-6 Basophil % 0.4 % 0-2 Nucleated Red Blood Cells % 0.1 Lipid Profile 12/07/2013 [facility] Triglycerides 237 mg/dL 66 (Trig/Chol/HDL) [phone] Cholesterol 217 mg/dL 67 HDL Cholesterol 72.3 mg/dL 68 LDL Cholesterol 97 mg/dL 69 Laboratory test 12/07/2013 [facility] TSH (Thyroid 2.58 IU/mL 0.34-5.60 finding [phone] Stimulating Horm) Hemoglobin A1c 7.1 % High Less than 6.0 70 Human Papilloma 06/09/2013 [facility] Human Papillomavirus See Comment 71 [phone] Source Human Papillomavirus High Risk Negative Negative 72 Laboratory test 06/08/2013 [facility] Cytology RUN DATE: 73 finding [phone] SEE NOTE> Urine DIP 06/08/2013 In House Lab Leukocytes neg Neg [phone] Urine Nitrites neg Neg Urine pH 5 5-6 Total Protein, Urine 1+ High Neg Urine Glucose norm Norm Urine Ketones neg Neg Urobilinogen norm Norm Urine Bilirubin neg Neg Urine Blood 250 High Neg Specific Brodn[place] 1.025 High 1.01-1.02 CBC Auto Diff 05/04/2013 [facility] White Blood 10.2 10^3/uL 4.8-10.8 [phone] Count Red Blood Count 5.17 10^6/uL 4.0-5.4 Hemoglobin 13.1 g/dL 12.0-16.0 Hematocrit 42 % 35-47 Mean Corpuscular Volume 81 fL 80-97 Mean Corpuscular Hemoglobin 25 pg Low 27-31 Mean Corpuscular HGB Conc 31 g/dL 31-36 Red Cell Distribution Width 14 % 10.5-15 Platelet Count 213 10^3/uL 150-450 Mean Platelet Volume 9 um3 7.4-10.4 Abs Neutrophils 7.0 10^3/uL 1.5-7.7 Abs Lymphocytes 2.6 10^3/uL 1.0-4.8 Abs Monocytes 0.4 10^3/uL 0-0.8 Abs Eosinophils 0.1 10^3/uL 0-0.6 Abs Basophils 0 10^3/uL 0-0.2 Abs Nucleated RBC 0.01 10^3/uL Granulocyte % 69.1 % 38-83 Lymphocyte % 25.6 % 25-47 Monocyte % 3.8 % 1-9 Eosinophil % 1.3 % 0-6 Basophil % 0.2 % 0-2 Nucleated Red Blood Cells % 0.1 Comp Metabolic Panel 05/04/2013 [facility] Sodium 141 mmol/L 133-145 [phone] Potassium 4.3 mmol/L 3.5-5.0 Chloride 103 mmol/L 101-111 Co2 Carbon Dioxide 29.0 mmol/L 22-32 Anion Gap 9.0 mmol/L 2-11 Glucose 165 mg/dL High 70-100 Blood Urea Nitrogen 17 mg/dL 6-24 Creatinine 0.70 mg/dL 0.50-1.40 BUN/Creatinine Ratio 24.3 High 8-20 Calcium 10.2 mg/dL High 8.1-9.9 Total Protein 6.7 g/dL 6.2-8.1 Albumin 3.6 g/dL 3.2-5.2 Globulin 3.1 g/dL 2-4 Albumin/Globulin Ratio 1.2 1-3 Total Bilirubin 0.8 mg/dL 0.4-1.5 Alkaline Phosphatase 102 U/L 30-110 Alt 23 U/L 14-54 Ast 25 U/L 12-42 Egfr Non- 84.0 >60 Egfr 108.0 >60 74 Laboratory 05/04/2013 [facility] TSH (Thyroid 1.90 0.34-5.60 test finding [phone] Stimulating miu/mL Horm) Lipid Profile 05/04/2013 [facility] Triglycerides 221 mg/dL High 40-200 (Trig/Chol/HDL [phone] ) Cholesterol 212 mg/dL High Less than 200 HDL Cholesterol 73 mg/dL High 40-60 75 Cholesterol/HDL Ratio 2.9 Average 1-4.44 LDL Cholesterol 94.8 Less Than 100 76 Laboratory test 05/04/2013 [facility] Hemoglobin A1c 7.1 % High Less 77 finding [phone] than 6.0 Laboratory test 05/16/2012 [facility] Hemoglobin A1c 6.8 % High Less 78 finding [phone] than 6.0 CBC Auto Diff 01/28/2012 [facility] White Blood 11.1 CUMM High 4.8-10.8 [phone] Count Red Cell Count 5.18 CUMM 4.2-5.4 Hemoglobin 13.7 g/dL 12.0-16.0 Hematocrit 41 % 35-47 Mean Corpuscular Volume 80 um3 79-97 Mean Corpuscular Hemoglob 27 pg 27-31 Mean Corpuscular HGB Cone 33 g/dL 32-36 Redcell Distribution WDTH 14 % 10.5-15 Platelet Count 223 CUMM 150-450 Mean Platelet Volume 9.5 um3 7.4-10.4 Absolute Neutrophil Count 7.8 High 1.5-7.7 79 Comp Metabolic Panel 01/28/2012 [facility] Sodium 139 mmol/L 135-145 [phone] Potassium 3.9 mmol/L 3.5-5.0 Chloride 101 mmol/L 101-111 Co2 (Carbon Dioxide) 32.0 mmol/L 22-32 Anion Gap 6.0 mmol/L 2-11 80 Glucose 160 mg/dL High 70-100 BUN 20 mg/dL 6-24 Creatinine 0.8 mg/dL 0.50-1.40 One Over Creatinine 1.25 BUN/Creatinine Ratio 25.0 High 8-20 Calcium 10.0 mg/dL High 8.1-9.9 Total Protein 7.0 GM/DL 6.2-8.1 Albumin 3.7 GM/DL 3.2-5.2 Globulin 3.3 GM/DL 2-4 Albumin/Globulin Ratio 1.1 1-3 Bilirubin Total 0.7 mg/dL 0.4-1.5 81 Alkaline Phosphatase 106 U/L 30-110 Alt (SGPT) 20 U/L 14-54 Ast (Sgot) 20 U/L 12-42 eGFR Non- 72.2 > 60 eGFR 92.9 > 60 82 Laboratory test 01/28/2012 [facility] TSH 1.78 0.34-5.60 finding [phone] MIU/ML Lipid Profile 01/28/2012 [facility] Triglyceride 301 mg/dL High 40-200 (Trig/Chol/HDL) [phone] Cholesterol 215 mg/dL High Less Than 200 83 High Density Lipoprotein 72 mg/dL High 40-60 84 Cholesterol/HDL Ratio 2.99 AVERAGE 1-4.44 Low Density Lipoprotein 83 mg/dL Less Than 100 85 Laboratory test 01/28/2012 [facility] Hemoglobin A1c 6.6 % High Less 86 finding [phone] Than 6.0 Manual 01/28/2012 [facility] Polysegmented 81 % 38 -83 Differential [phone] Neutrophil Lymphocyte 16 % Low 25-47 Monocyte 2 % 0-13 Eosinophil 1 % 0-6 RBC Morphology NORMAL 1 [id number] Normal Range 180 to 914 Indeterminate Range 145 to 180 Deficient Range <145 4 [id number] 5 Therapeutic target for the treatment of diabetes mellitus patients is <7% HBA1C, and in selective patients <6.0%. Please refer to [place] [employer] diabetic care guidelines for further information. 6 [id number] 7 Desirable: <150 Borderline High: 150-199 High: 200-499 Very High: >500 8 Desirable: <200 Borderline High: 200-239 High: >239 9 Low: <40 Desirable: 40-60 High: >60 10 Desirable: <100 Near Optimal: 100-129 Borderline High: 130-159 High: 160-189 Very High: >189 11 Because ethnic data is not always readily available, this report includes an eGFR for both -Americans and non- Americans. The National Kidney Disease Education Program (NKDEP) does not endorse the use of the MDRD equation for patients that are not between the ages of 18 and 70, are , have extremes of body size, muscle mass, or nutritional status, or are non- or non-. According to the National Kidney Foundation, irrespective of diagnosis, the stage of the disease is based on the level of kidney function: Stage Description GFR(mL/min/1.73 m(2)) 1 Kidney damage with normal or decreased GFR 90 2 Kidney damage with mild decrease in GFR 60-89 3 Moderate decrease in GFR 30-59 4 Severe decrease in GFR 15-29 5 Kidney failure <15 (or dialysis) 12 [id number] 14 Desirable <150 Borderline high 150-199 High 200-499 Very High >500 15 Desirable <200 Borderline high 200-239 High >239 16 Low <40 Desirable: 40-60 High: >60 17 Desirable: <100 mg/dL Near Optimal: 100-129 mg/dL Borderline High: 130-159 mg/dL High: 160-189 mg/dL Very High: >189 mg/dL 18 Because ethnic data is not always readily available, this report includes an eGFR for both -Americans and non- Americans. The National Kidney Disease Education Program (NKDEP) does not endorse the use of the MDRD equation for patients that are not between the ages of 18 and 70, are , have extremes of body size, muscle mass, or nutritional status, or are non- or non-. According to the National Kidney Foundation, irrespective of diagnosis, the stage of the disease is based on the level of kidney function: Stage Description GFR(mL/min/1.73 m(2)) 1 Kidney damage with normal or decreased GFR 90 2 Kidney damage with mild decrease in GFR 60-89 3 Moderate decrease in GFR 30-59 4 Severe decrease in GFR 15-29 5 Kidney failure <15 (or dialysis) 19 Desirable <150 Borderline high 150-199 High 200-499 Very High >500 20 Desirable <200 Borderline high 200-239 High >239 21 Low <40 Desirable: 40-60 High: >60 22 Unable to calculate LDL as triglyceride is > 400 23 Therapeutic target for the treatment of diabetes Mellitus patients is <7% HBA1C, and in selective patients <6.0%.Please refer to [place] [employer] Diabetic care guidelines for further information. 24 Therapeutic target for the treatment of diabetes Mellitus patients is <7% HBA1C, and in selective patients <6.0%.Please refer to [place] [employer] Diabetic care guidelines for further information. 25 Desirable <150 Borderline high 150-199 High 200-499 Very High >500 26 Desirable <200 Borderline high 200-239 High >239 27 Low <40 Desirable: 40-60 High: >60 28 Desirable: <100 mg/dL Near Optimal: 100-129 mg/dL Borderline High: 130-159 mg/dL High: 160-189 mg/dL Very High: >189 mg/dL 29 Because ethnic data is not always readily available, this report includes an eGFR for both -Americans and non- Americans. The National Kidney Disease Education Program (NKDEP) does not endorse the use of the MDRD equation for patients that are not between the ages of 18 and 70, are , have extremes of body size, muscle mass, or nutritional status, or are non- or non-. According to the National Kidney Foundation, irrespective of diagnosis, the stage of the disease is based on the level of kidney function: Stage Description GFR(mL/min/1.73 m(2)) 1 Kidney damage with normal or decreased GFR 90 2 Kidney damage with mild decrease in GFR 60-89 3 Moderate decrease in GFR 30-59 4 Severe decrease in GFR 15-29 5 Kidney failure <15 (or dialysis) 30 Desirable <150 Borderline high 150-199 High 200-499 Very High >500 31 Desirable <200 Borderline high 200-239 High >239 32 Low <40 Desirable: 40-60 High: >60 33 Desirable: <100 mg/dL Near Optimal: 100-129 mg/dL Borderline High: 130-159 mg/dL High: 160-189 mg/dL Very High: >189 mg/dL 34 Because ethnic data is not always readily available, this report includes an eGFR for both -Americans and non- Americans. The National Kidney Disease Education Program (NKDEP) does not endorse the use of the MDRD equation for patients that are not between the ages of 18 and 70, are , have extremes of body size, muscle mass, or nutritional status, or are non- or non-. According to the National Kidney Foundation, irrespective of diagnosis, the stage of the disease is based on the level of kidney function: Stage Description GFR(mL/min/1.73 m(2)) 1 Kidney damage with normal or decreased GFR 90 2 Kidney damage with mild decrease in GFR 60-89 3 Moderate decrease in GFR 30-59 4 Severe decrease in GFR 15-29 5 Kidney failure <15 (or dialysis) 35 Desirable <150 Borderline high 150-199 High 200-499 Very High >500 36 Desirable <200 Borderline high 200-239 High >239 37 Low <40 Desirable: 40-60 High: >[address] Jewell as well Copy Result to: LIAM JEWELL ([id number]) 39 Therapeutic target for the treatment of diabetes Mellitus patients is <7% HBA1C, and in selective patients <6.0%.Please refer to [place] [employer] Diabetic care guidelines for further information. 40 SEE RESULT BELOW Name: ELEAZARJENNI HICKS [place] : [address]: Ruben Reynaga DO Acct: [id number] Unit: [id number] AGE: 69 Location: [facility] Re06/09/15 SEX: F Status: REG REF SPEC: [id number] ANDREW: 06/09/15-[address]: Ruben Reynaga DO REQ: [id number] RECD: 06/10/15 STATUS: COMP OTHR DR: Adela Pandey FILM MOUNTER _ SOURCE: STOOL SPDESC: ORDERED: Dusty daniel PCR, Stool Culture, Fecal Lactoferr Procedure Result Verified Site Stool Culture Final 06/13/15- 0903 ML Result No enteric pathogens isolated Testing for Salmonella, Shigella, Aeromonas, Plesiomonas, Yersinia and Campylobacter are included in a Stool Culture. Vibrio spp not routinely tested for in a stool culture. If testing is desired, please request specifically when placing test order. Sensitivities not routinely performed on stool isolates, as antibiotics may prolong the carriage rate of bacteria. Please contact the microbiology lab if sensitivities are required. Stool Specimen Description Final 06/10/15- 1704 ML Stool Color Brown Stool Form Nonformed Stool Consistency Soft Shiga Toxin 1 2 Final 06/11/15- 1038 ML Organism 1 Negative Shiga Toxin 1 2 Immunochromatographic Assay CONTINUED ON NEXT PAGE * ML=Testing performed at Main Lab DEPARTMENT OF PATHOLOGY, [address] [place] [address] Benny Tian M.D. Director [facility] # [id number] Patient: JENNI TIDWELL [id number] (Continued) Specimen: [id number] Collected: 06/09/15 Received: 06/10/15 (Continued) Procedure Result Verified Site Shiga Toxin 1 2 Final (continued) 06/11/15- 1037 C. difficile PCR Final 06/10/15- 1740 ML Organism 1 Toxigenic C.diff NEGATIVE Organism 2 027 Presumptive NEGATIVE Fecal Lactoferrin (Stool WBC) Final 06/10/15- 1704 ML Fecal Lactoferrin Positive by Immunoassay TEST LIMITATIONS: Assay detects elevated levels of lactoferrin released from fecal leukocytes as a marker of intestinal inflammation. The test may not be appropriate in immunocompromised persons. Fecal samples from breast fed infants should not be used with this assay. * ML - MAIN LAB ([facility]) . END OF REPORT * ML=Testing performed at Main Lab DEPARTMENT OF PATHOLOGY, [address] [place] [address] Benny Tian M.D. Director [facility] # [id number] 41 Because ethnic data is not always readily available, this report includes an eGFR for both -Americans and non- Americans. The National Kidney Disease Education Program (NKDEP) does not endorse the use of the MDRD equation for patients that are not between the ages of 18 and 70, are , have extremes of body size, muscle mass, or nutritional status, or are non- or non-. According to the National Kidney Foundation, irrespective of diagnosis, the stage of the disease is based on the level of kidney function: Stage Description GFR(mL/min/1.73 m(2)) 1 Kidney damage with normal or decreased GFR 90 2 Kidney damage with mild decrease in GFR 60-89 3 Moderate decrease in GFR 30-59 4 Severe decrease in GFR 15-29 5 Kidney failure <15 (or dialysis) 42 Acute inflammation: >10.00 43 SEE RESULT BELOW Name: JENNI TIDWELL : [address]: Ruben Reynaga DO Acct: [id number] Unit: [id number] AGE: 69 Location: ED Re06/09/15 SEX: F Status: DEP ER SPEC: [id number] ANDREW: 06/09/[address]: Ruben Reynaga DO REQ: [id number] RECD: 06/09/15 STATUS: RODRIGO REBOLLEDO DR: Khadra Willett FILM MOUNTER _ SOURCE: URINE SPDESC: ORDERED: Urine Culture Procedure Result Verified Site Urine Culture Final 06/11/15711 ML Organism 1 NORMAL TRIPP [place] Count 1-10,000 (Few) CFU/ML * ML - MAIN LAB ([facility]) . END OF REPORT * ML=Testing performed at Main Lab DEPARTMENT OF PATHOLOGY, [address] [place] [id number] Benny Tian M.D. Director [facility] # [id number] 44 Therapeutic target for the treatment of diabetes Mellitus patients is <7% HBA1C, and in selective patients <6.0%.Please refer to [place] [employer] Diabetic care guidelines for further information. 45 Because ethnic data is not always readily available, this report includes an eGFR for both -Americans and non- Americans. The National Kidney Disease Education Program (NKDEP) does not endorse the use of the MDRD equation for patients that are not between the ages of 18 and 70, are , have extremes of body size, muscle mass, or nutritional status, or are non- or non-. According to the National Kidney Foundation, irrespective of diagnosis, the stage of the disease is based on the level of kidney function: Stage Description GFR(mL/min/1.73 m(2)) 1 Kidney damage with normal or decreased GFR 90 2 Kidney damage with mild decrease in GFR 60-89 3 Moderate decrease in GFR 30-59 4 Severe decrease in GFR 15-29 5 Kidney failure <15 (or dialysis) 46 Because ethnic data is not always readily available, this report includes an eGFR for both -Americans and non- Americans. The National Kidney Disease Education Program (NKDEP) does not endorse the use of the MDRD equation for patients that are not between the ages of 18 and 70, are , have extremes of body size, muscle mass, or nutritional status, or are non- or non-. According to the National Kidney Foundation, irrespective of diagnosis, the stage of the disease is based on the level of kidney function: Stage Description GFR(mL/min/1.73 m(2)) 1 Kidney damage with normal or decreased GFR 90 2 Kidney damage with mild decrease in GFR 60-89 3 Moderate decrease in GFR 30-59 4 Severe decrease in GFR 15-29 5 Kidney failure <15 (or dialysis) 47 Therapeutic target for the treatment of diabetes Mellitus patients is <7% HBA1C, and in selective patients <6.0%.Please refer to [place] [employer] Diabetic care guidelines for further information. 48 Because ethnic data is not always readily available, this report includes an eGFR for both -Americans and non- Americans. The National Kidney Disease Education Program (NKDEP) does not endorse the use of the MDRD equation for patients that are not between the ages of 18 and 70, are , have extremes of body size, muscle mass, or nutritional status, or are non- or non-. According to the National Kidney Foundation, irrespective of diagnosis, the stage of the disease is based on the level of kidney function: Stage Description GFR(mL/min/1.73 m(2)) 1 Kidney damage with normal or decreased GFR 90 2 Kidney damage with mild decrease in GFR 60-89 3 Moderate decrease in GFR 30-59 4 Severe decrease in GFR 15-29 5 Kidney failure <15 (or dialysis) 49 Because ethnic data is not always readily available, this report includes an eGFR for both -Americans and non- Americans. The National Kidney Disease Education Program (NKDEP) does not endorse the use of the MDRD equation for patients that are not between the ages of 18 and 70, are , have extremes of body size, muscle mass, or nutritional status, or are non- or non-. According to the National Kidney Foundation, irrespective of diagnosis, the stage of the disease is based on the level of kidney function: Stage Description GFR(mL/min/1.73 m(2)) 1 Kidney damage with normal or decreased GFR 90 2 Kidney damage with mild decrease in GFR 60-89 3 Moderate decrease in GFR 30-59 4 Severe decrease in GFR 15-29 5 Kidney failure <15 (or dialysis) 50 *Ascorbic acid is present which may interfere with detection of blood. 51 Acute inflammation: >10.00 52 Because ethnic data is not always readily available, this report includes an eGFR for both -Americans and non- Americans. The National Kidney Disease Education Program (NKDEP) does not endorse the use of the MDRD equation for patients that are not between the ages of 18 and 70, are , have extremes of body size, muscle mass, or nutritional status, or are non- or non-. According to the National Kidney Foundation, irrespective of diagnosis, the stage of the disease is based on the level of kidney function: Stage Description GFR(mL/min/1.73 m(2)) 1 Kidney damage with normal or decreased GFR 90 2 Kidney damage with mild decrease in GFR 60-89 3 Moderate decrease in GFR 30-59 4 Severe decrease in GFR 15-29 5 Kidney failure <15 (or dialysis) 53 Therapeutic target for the treatment of diabetes Mellitus patients is <7% HBA1C, and in selective patients <6.0%.Please refer to [place] [employer] Diabetic care guidelines for further information. 54 Desirable <150 Borderline high 150-199 High 200-499 Very High >500 55 Desirable <200 Borderline high 200-239 High >239 56 Low <40 Desirable: 40-60 High: >60 57 Desirable <100 Near Optimal 100-129 Borderline high 130-159 High 160-189 Very High >189 58 Because ethnic data is not always readily available, this report includes an eGFR for both -Americans and non- Americans. The National Kidney Disease Education Program (NKDEP) does not endorse the use of the MDRD equation for patients that are not between the ages of 18 and 70, are , have extremes of body size, muscle mass, or nutritional status, or are non- or non-. According to the National Kidney Foundation, irrespective of diagnosis, the stage of the disease is based on the level of kidney function: Stage Description GFR(mL/min/1.73 m(2)) 1 Kidney damage with normal or decreased GFR 90 2 Kidney damage with mild decrease in GFR 60-89 3 Moderate decrease in GFR 30-59 4 Severe decrease in GFR 15-29 5 Kidney failure <15 (or dialysis) 59 Acute inflammation: >10.00 60 REFERENCE VALUE <20.0 (Negative) Test Performed by: [address] [address] Factory Superintendent: Jon Guardado M.D. 61 No bands detected 62 No bands detected 63 Specific serologic response to B. burgdorferi infection is not detected, but cannot rule out early infection during which low or undetectable antibody levels to B. burgdorferi may be present. If clinically indicated, a new serum specimen should be submitted in 7-14 days. ADDITIONAL INFORMATION CDC criteria require >=5 bands for IgG or >=2 bands for IgM for the Immunoblot to be considered positive. Bands (e.g.,p41) may be detected in patients without Lyme disease, and patterns not meeting the CDC criteria should be interpreted with caution. Immunoblot should be ordered only on specimens that are positive or equivocal by a FDA-licensed Lyme disease antibody screening test (e.g., EIA). Test Performed by: [place] [address] Factory Superintendent: Jon Guardado M.D. 64 Test Performed by: [place] [address] Factory Superintendent: Jon Guardado M.D. 65 Because ethnic data is not always readily available, this report includes an eGFR for both -Americans and non- Americans. The National Kidney Disease Education Program (NKDEP) does not endorse the use of the MDRD equation for patients that are not between the ages of 18 and 70, are , have extremes of body size, muscle mass, or nutritional status, or are non- or non-. According to the National Kidney Foundation, irrespective of diagnosis, the stage of the disease is based on the level of kidney function: Stage Description GFR(mL/min/1.73 m(2)) 1 Kidney damage with normal or decreased GFR 90 2 Kidney damage with mild decrease in GFR 60-89 3 Moderate decrease in GFR 30-59 4 Severe decrease in GFR 15-29 5 Kidney failure <15 (or dialysis) 66 Desirable <150 Borderline high 150-199 High 200-499 Very High >500 67 Desirable <200 Borderline high 200-239 High >239 68 Low <40 Desirable: 40-60 High: >60 69 Desirable <100 Near Optimal 100-129 Borderline high 130-159 High 160-189 Very High >189 70 Therapeutic target for the treatment of diabetes Mellitus patients is <7% HBA1C, and in selective patients <6.0%.Please refer to [place] [employer] Diabetic care guidelines for further information. 71 RESULT: Ectocervical/Endocervical 72 For types 16, 18, 31, 33, 35, 39, 45, 51, 52, 56, 58, 59 and 68. Test Performed by: [facility] - [address] [address] Factory Superintendent: Ha Frankel III, M.D. 73 RUN DATE: 06/09/13 [facility] LAB LIVE PAGE 1 RUN TIME: [address] [place] [id number] Specimen Inquiry Name: JENNI TIDWELL : [address]: Khadra Willett NP Acct: [id number] Unit: [id number] AGE: 67 Location: [facility] Re06/08/13 SEX: F Status: REG REF SPEC: [id number] ANDREW: 06/08/13-[address]: Khadra Willett NP REQ: [id number] RECD: 06/08/13 STATUS: SOUT _ ORDERED: IMAGE ANALYSIS, HPV/Thin Prep FINAL DIAGNOSIS Negative for Intraepithelial lesion or Malignancy COMMENTS: Specimen sent to [facility] in [place], [place] on 06/09/13 by [id number] at 1209. Results will be reported separately. A. Ectocervical/Endocervical Specimen Adequacy: Satisfactory of evaluation Transformation zone component not identified Patient Information: HPV: High risk HPV DNA testing regardless of pap results. Actual Specimen Date: 06/08/13 Other Pertinent History: No History Given Signed (signature on file) Nimco NIKHIL Yeager (ASCP) 06/09/13 1209 This Pap test was evaluated with the assistance of the ThinPrep Test Imaging System. Due to cytologic findings at the printer slotter feeder microscope, comprehensive manual rescreening by a Retail Salesworker may be required. The Pap Smear is a screening test designed to aid in the detection of premalignant and malignant conditions of the uterine cervix. It is not a diagnostic procedure and should not be used as the sole means of detecting cervical cancer. Both false- positive and false- negative reports do occur. Depending on your risk status, a Pap smear shoudl be obtained and evaluated every 1-3 years. END OF REPORT * ML=Testing performed at Main Lab DEPARTMENT OF PATHOLOGY, [address] [place] [address] Benny Tian M.D. Director [facility] Permit #[id number] 74 Because ethnic data is not always readily available, this report includes an eGFR for both -Americans and non- Americans. The National Kidney Disease Education Program (NKDEP) does not endorse the use of the MDRD equation for patients that are not between the ages of 18 and 70, are , have extremes of body size, muscle mass, or nutritional status, or are non- or non-. According to the National Kidney Foundation, irrespective of diagnosis, the stage of the disease is based on the level of kidney function: Stage Description GFR(mL/min/1.73 m(2)) 1 Kidney damage with normal or decreased GFR 90 2 Kidney damage with mild decrease in GFR 60-89 3 Moderate decrease in GFR 30-59 4 Severe decrease in GFR 15-29 5 Kidney failure <15 (or dialysis) 75 HDL Interpretation: Undesirable: High Risk: Less than 40 mg/dL Desirable: Low Risk: Greater than 60 mg/dL 76 LDL Interpretation: Low Risk Optimal Level: LDL Less than 100 mg/dL Near or Above Optimal: LDL 100-129 mg/dL Borderline High Risk: LDL 130-159 mg/dL High Risk: LDL 160-189 mg/dL Very High Risk: LDL Greater than 189 mg/dL 77 Therapeutic target for the treatment of diabetes Mellitus patients is <7% HBA1C, and in selective patients <6.0%.Please refer to [place] [employer] Diabetic care guidelines for further information. 78 Therapeutic target for the treatment of diabetes Mellitus patients is <7% HBA1C, and in selective patients <6.0%.Please refer to [place] [employer] Diabetic care guidelines for further information. 79 Imm. NE 1 80 Anion gap measurement may be of limited value in the presence of any alkalosis, especially in a combined acid base disorder. . 81 A metabolite of Naproxen, O-desmethylnaproxen, has been shown to interfere with the Jendrassik-Dominique method for measuring total bilirubin. Samples from patients who have taken Naproxen have shown spurious elevation in total bilirubin levels. 82 Because ethnic data is not always readily available, this report includes an eGFR for both -Americans and non- Americans. The National Kidney Disease Education Program (NKDEP) does not endorse the use of the MDRD equation for patients that are not between the ages of 18 and 70, are , have extremes of body size, muscle mass, or nutritional status, or are non- or non-. According to the National Kidney Foundation, irrespective of diagnosis, the stage of the disease is based on the level of kidney function: Stage Description GFR(mL/min/1.73 m(2)) 1 Kidney damage with normal or decreased GFR 90 2 Kidney damage with mild decrease in GFR 60-89 3 Moderate decrease in GFR 30-59 4 Severe decrease in GFR 15-29 5 Kidney failure <15 (or dialysis) 83 CHOLESTEROL INTERPRETATION: Desirable: Less than 200 MG/DL Borderline-High Risk: 200-239 MG/DL High-Risk: 240 MG/DL and over 84 HDL INTERPRETATION: Undesirable: High Risk: Less than 40 MG/DL Desirable: Low Risk: Greater than 60 MG/DL 85 LDL INTERPRETATION: Low Risk Optimal Level: LDL Less than 100 MG/DL Near or Above Optimal: LDL 100-129 MG/DL Borderline High Risk: LDL 130-159 MG/DL High Risk: LDL 160-189 MG/DL Very High Risk: LDL Greater than 189 MG/DL 86 THERAPEUTIC TARGET FOR THE TREATMENT OF DIABETES MELLITUS PATIENTS IS <7% HBA1C, AND IN SELECTIVE PATIENTS <6.0%. PLEASE REFER TO [place] [employer] DIABETIC CARE GUIDELINES FOR FURTHER INFORMATION. Procedures Date Code Description Status 01/11/2018 92646 EKG, at Least 12 Leads w/Interpretation and Report Completed 06/06/2015 18957 Removal-Impacted Cerumen Completed 09/24/2011 [id number] Mammogram Completed Encounters Type Date Location Provider Dx Diagnosis Office Visit 03/04/2018 Main Office Khadra Willett, E11.65 Type 2 diabetes 11:30a BROKER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 mellitus with hyperglycemia M79.1 Myalgia Office Visit 02/08/2018 11:30a Main Office Khadra Lara E11.65 Type 2 diabetes Storm, BROKER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 mellitus with hyperglycemia M79.1 Myalgia Office Visit 01/11/2018 1:30p [facility] Khadra Lara Z00.00 Encntr for Storm, BROKER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 general adult medical exam w/o abnormal findings E11.9 Type 2 diabetes mellitus without complications E78.5 Hyperlipidemia, unspecified M25.511 Pain in right shoulder I83.211 Varicos vn of r low extrem w ulc of thigh and inflammation Office Visit 06/10/2017 10:45a Main Office Khadra Lara S31.804A Puncture wound w Storm, BROKER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 foreign body of unsp buttock, init encntr Z23 Encounter for immunization Office Visit 09/03/2016 2:30p Main Office Khadra Lara E11.9 Type 2 diabetes Storm, BROKER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 mellitus without complications M25.511 Pain in right shoulder E66.9 Obesity, unspecified E78.5 Hyperlipidemia, unspecified Office Visit 04/27/2016 3:00p Main Office Khadra Lara E11.9 Type 2 diabetes Storm, BROKER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 mellitus without complications M17.9 Osteoarthritis of knee, unspecified E78.5 Hyperlipidemia, unspecified Z23 Encounter for immunization Office Visit 03/03/2016 3:00p Main Office Andreaswntjake RBigg M17.9 Osteoarthritis of Storm, BROKER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 knee, unspecified E11.9 Type 2 diabetes mellitus without complications Office Visit 01/23/2016 11:00a Main Office Andreaswntjake RBigg M79.7 Fibromyalgia Storm, BROKER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 Office Visit 12/19/2015 2:15p Main Office Andreaswntjake R. M17.9 Osteoarthritis of Storm, BROKER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 knee, unspecified Office Visit 11/14/2015 1:30p Main Office Kyle S93.401A Sprain of MD Deric unspecified ligament of right ankle, init encntr Office Visit 11/08/2015 2:00p Main Office Andreaswntjake Lara M79.7 Fibromyalgia Storm, BROKER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 M17.9 Osteoarthritis of knee, unspecified Office Visit 09/16/2015 1:30p Main Office Khadra Willett, Z00.00 Encntr for general BROKER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 adult medical exam w/o abnormal findings M25.511 Pain in right shoulder E11.9 Type 2 diabetes mellitus without complications Z23 Encounter for immunization Office Visit 03/14/2015 9:30a Main Office Andreaswnti R. 250.00 Diabetes Mellitus Storm, BROKER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 W/O Compl Type II Or Unspec Controlled Office Visit 01/22/2015 11:15a Main Office Andreaswnti R. 054.9 Herpes Simplex W/O Storm, BROKER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 Complication Office Visit 01/11/2015 10:00a Main Office Shawnti R. 729.1 Myalgia & Myositis Storm, BROKER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 Unspec V76.10 Screening For Malignant Neoplasm Breast Office Visit 12/18/2014 10:00a Main Office Shawnti R. 729.1 Myalgia & Myositis Storm, BROKER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 Unspec Office Visit 12/04/2014 10:15a Main Office Andreaswnti R. 844.9 Sprains & Strains Storm, BROKER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 Knee & Leg Unspec Office Visit 11/12/2014 10:00a Main Office Shawnti R. 250.00 Diabetes Mellitus Storm, BROKER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 W/O Compl Type II Or Unspec Controlled Office Visit 10/15/2014 2:45p Main Office Khadra RBigg 782.9 Skin & Integumentary Storm, BROKER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 Tissue Other Symptoms 250.00 Diabetes Mellitus W/O Compl Type II Or Unspec Controlled Office Visit 08/14/2014 11:45a Main Office Khadra Willett, 592.0 Calculus Of Kidney BROKER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 591 Hydronephrosis Office Visit 06/11/2014 8:45a Main Office Andreaswoctavia R. V70.0 Examination General Storm, BROKER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 Medical Routine AT Health Care Facility 250.00 Diabetes Mellitus W/O Compl Type II Or Unspec Controlled 787.91 Diarrhea V72.62 Laboratory Exam Ordered as Part Of Routine General Med Exam V04.81 Need For Prophylactic Vaccination & Inoculation/Influenza V03.82 Streptococcus Pneumoniae Vaccination Spec Other Office Visit 05/15/2014 11:00a Main Office Khadra Lara 729.1 Myalgia & Myositis Storm, BROKER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 Unspec Office Visit 01/12/2014 2:00p Main Office Lauren Sanders 728.85 Spasm Muscle Moncho Moya Office Visit 12/07/2013 10:00a Main Office Svetlanai R. 250.00 Diabetes Mellitus Storm, BROKER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 W/O Compl Type II Or Unspec Controlled Office Visit 06/08/2013 9:00a Main Office Khadra R. V03.82 Streptococcus Storm, BROKER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 Pneumoniae Vaccination Spec Other V70.0 Examination General Medical Routine AT Health Care Facility 250.00 Diabetes Mellitus W/O Compl Type II Or Unspec Controlled V03.82 Streptococcus Pneumoniae Vaccination Spec Other Office Visit 05/04/2013 10:00a Main Office Andreaswnti R. 250.00 Diabetes Mellitus Storm, BROKER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 W/O Compl Type II Or Unspec Controlled V04.81 Need For Prophylactic Vaccination & Inoculation/Influenza Office Visit 01/17/2013 Main Office Adela Pandey, 451.89 Phlebitis & 8:45a BROKER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 Thrombophlebitis Other Office Visit 10/18/2012 Main Office Khadra Lara 386.11 Vertigo Benign 11:45a Storm, BROKER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 Paroxysmal Position Office Visit 09/23/2012 Main Office Khadra Lara 724.5 Backache Unspec 12:00p BILLY Willett Office Visit 09/05/2012 Main Office Khadra Lara 729.1 Myalgia & Myositis 2:45p BILLY Willett Unspec 715.09 Osteoarthrosis Generalized Multiple Sites Office Visit 05/19/2012 10:00a Main Office Khadra Lara 250.00 Diabetes Mellitus BILLY Willett W/O Compl Type II Or Unspec Controlled 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 V04.81 Need For Prophylactic Vaccination & Inoculation/Influenza Office Visit 03/18/2012 10:00a Main Office Khadra Lara 250.02 Diabetes Mellitus BILLY Willett W/O Compl Type II Or Unspec Type Uncontrol Office Visit 01/28/2012 2:00p Main Office Khadra aLra 296.30 Depressive Disorder BILLY Willett Major Recurrent Unspec 715.09 Osteoarthrosis Generalized Multiple Sites 780.57 Unspecified Sleep Apnea 790.29 Other Abnormal Glucose Plan of Treatment 03/04/2018 - RADHA Camarena-CE11.65 Type 2 diabetes mellitus with hyperglycemiaComments:will increase to 20 units of Toujeo, continue to titrate up from there ... Labs reviewed, DM poorly controlledFollow up:4 to 6 weeksRecommendations:increase your insulin to 20 units then continue to increase by 2 units every other day until your morning sugars are 80-120M79.1 MyalgiaComments:continue lyrica, encourage daily exercise as tolerated
--- OUTSIDE RECORDS SUMMARY | 2018-04-15 20:26 | XMS REPORT | Continuity of Care Document ---
:1945 External Reference #:[id number] Author Name BILLY Camarena Address [address] [place] [address] Care Team Providers Name Role Phone BILLY Camarena Care Team Information Patient Assistant Unavailable Payers Type Date Identification Numbers Payment Provider Subscriber Effective: Policy Number: Family [facility] Jenni Tidwell 2012 [id number] [employer] Expires: 2012 PayID: [id number] [address] [address] [place] [address] Expires: 2013 Policy Number: [id number] Medicare - [facility] Jenni Tidwell PayID: [id number] [address] [place] [address] Effective: 2013 Policy Number: [facility] Jenni Tidwell [id number] [facility] Number: [id number] [address] PayID: [id number] ESSENCE Linn [address] Effective: 2014 Policy Number: Medicaid After Jenni Tidwell [id number] Medicare Expires: 2017 Group Name: 2 1 [address] PayID: [id number] [place] [address] Advance Directives Type Date Description Status Comment Other Directive 01/12/2014 Health Care Proxy Current and Verified Problems Date Description Provider Status Onset: 06/06/2015 Diabetic peripheral neuropathy BILLY Camarena Active associated with type 2 diabetes mellitus Onset: 06/06/2015 Type 2 diabetes mellitus BILLY Camarena Active Onset: 08/22/2015 Primary fibromyalgia syndrome BILLY Camarena Active Family History Description No Information Available Social History Type Date Description Comments Sex Unknown Lives With Alone lives in [facility], first floor apartment with a walk in [...] Form Strength Qnty SIG Indications Ordering Provider Vitamin D 04/12 Active Capsules 60346Ijps 8caps take 1 Shawnti (Ergocalciferol) capsule by Marco Willett, mouth twice [employer] weekly for 4 weeks Luis Fernando Banks 02/08 Active Solution 300Unit/M 3ml inject 20 E11.65 Pen-Injec L units, Marco Willett t increase by 2 [employer] units every other day until fasting sugars are 80-120...max daily dose 80 units Pen [place] 02/08 Active Misc 31G X 6 100un use as E11.65 Shawnt mm its directed with Marco Willett, insulin pen [employer] once daily and as needed. Freestyle 10/06 Active Kit W/Device 1unit use as E11.9 Shawnti Insulinx Blood /2017 s needed. DX Marco Willett, Glucose code E11.9 [employer] Monitoring System Freestyle 10/01 Active Strips 50uni up to three Shawnti Insulinx Blood /2017 ts times a day Marco Willett, Glucose Test or as needed [employer] Strips dx code e11.65 Lyrica 05/18 Active Capsules 150mg 60cap take one s capsule by Shortle, mouth twice a [employer] day; maximum daily dose=2 Lipitor Active Tablets 20mg 90tab take 1 by s mouth daily Marco Willett, for [employer] cholesterol Lyrica 08/06 Active Capsules 75mg 90cap take one M60.80 s capsule by Marco Willett, mouth every [employer] morning take two capsules by mouth at bedtime; maximum daily dose=3 Cpap 05/16 Active replacement G47.33 hose, mask Marco Willett, and any other [employer] needed parts dx: g47.33 Freestyle Lite 06/19 Active Strip 50uni Use as wnti Test ts Directed To Marco Willett, Test Blood [employer] Sugars Daily And as Needed Depend 06/11 Active Misc 90uni wear daily ts for urine Marco Willett, [employer] For Women incontinence, [employer] Large/X-Large change as Max Absorb needed Caltrate 600+D 12/07 Active Tablets 600-400mg -Unit Marco Willett [employer] Multi Complete 12/07 Active Capsules daily Marco Willett [employer] Nabumetone 09/05 Active Tablets 750mg 60tab take two M15.0 s tablets by Marco Willett, mouth every [employer] morning Cpap 05/19 Active 12CM wear QHS while Marco Willett, sleeping [employer] Cymbalta 01/[address] 60mg 30cap take one F33.9 Part s capsule by Marco Willett, mouth every [employer] day Meclizine HCL 10/19 Hx Tablets 25mg 30tab 1 take by Kyle s mouth tablet [place] - 3 times per MD 01/11 day for sensation of motion Oxycodone HCL 11/07 Hx Tablets 5mg 60tab 1 or 2 by M17.9 s mouth three Marco Willett, - times daily [employer] 06/10 if needed for severe pain, replaces hydrocodone Lyrica 07/02 Hx Capsules 150mg 60cap Take One M60.80 s Capsule By Marco Willett, - Mouth Twice A [employer] 08/06 Day; Maximum Daily Dose=2 Diabetic Shoes 01/11 Hx 1Pair custom fit 250.00 diabetic Marco Willett, - shoes dx 250 [employer] 01/21 Lyrica 01/04 Hx Capsules 75mg 90cap 1 by mouth 729.1 s three times Marco Willett, - daily for [employer] 07/02 pain /2014 Lyrica 12/18 Hx Capsules 150mg 60cap 1 by mouth 729.1 s twice daily Marco Willett, - [employer] 01/04 Lyrica 12/04 Hx Capsules 75mg 60cap 1 by mouth 844.9 s twice a day Marco Willett, - [employer] 12/06 Oxycodone HCL 12/04 Hx Tablets 5mg 20twe 1 or 2 before 844.9 nty bed if needed Marco Willett, - for pain [employer] 06/06 Clarithromycin 11/07 Hx Tablets 500mg 20tab 1 by mouth s twice a day x Patricia, - 10 days [employer] 11/07 Triamcinolone 10/15 Hx Cream 0.5% 15gm apply small 782.9 amount to Marco Willett, - affected area [employer] 06/10 twice daily /2016 Diabetic Shoes 08/14 Hx 1Pair custom fit diabetic Marco Willett, - shoes [employer] 08/24 Metformin HCL 06/26 Hx Tablets 500mg 60tab take one s tablet by Marco Willett, - mouth twice a [employer] 12/18 day with food Lyrica 05/15 Hx Capsules 75mg 60cap 1 by mouth 729.1 s twice a day Marco Willett, - [employer] 10/15 Vitamin B 15 Hx Tablets daily Marco Willett, - [employer] 01/11 Zostavax 06/08 Hx Solution 30799Wes/ QS inject 0.65ml V70.0 Rec 0.65ML into Marco Willett, - subqutaneous [employer] 06/06 tissue once Free Style Lite 05/04 Hx Test 50uni use to test Strips ts blood sugar Marco Willett, - daily and as [employer] 10/01 Meclizine HCL 10/18 Hx Tablets 25mg 30tab 1 po q6hr prn 386.11 s dizziness Marco Willett, - [employer] 05/04 Ondansetron Odt 10/18 Hx Tablets 8mg 30tab 1 po tid prn 386.11 Dispers s nausea Marco Willett, - [employer] 05/04 Cyclobenzaprine 09/23 Hx Tablets 10mg 30tab 1/2 or 1 po 724.5 wnti s tid for Marco Willett, - muscle spasm, [employer] 06/08 will cause tiredness Lyrica 09/05 Hx Capsules 75mg 60cap 1 po qhs for 729.1 s one week then Marco Willett, - increase to [employer] 06/08 Metformin HCL 01/31 Hx Tablets 500mg 60tab take 1 tablet s by mouth Marco Willett, - twice a day [employer] 05/19 with Cymbalta 01/[address] 60mg 1 po qd Part Marco Willett, - [employer] 01/27 Aleve 01/27 Hx Capsules 220mg 1 or 2 bid 715.09 Marco Willett, - [employer] 09/05 Medications Administered in Office Medication Date Status Form Strength Qnty SIG Indications Ordering Provider Rabies Vaccine Administered Injection Unknown (Received 014 Elsewhere) Rabies Vaccine Administered Injection Unknown (Received 014 Elsewhere) Rabies Vaccine Administered Injection Unknown (Received 014 Elsewhere) Rabies Vaccine Administered Injection Unknown (Received 014 Elsewhere) Rabies Vaccine Administered Injection Unknown (Received 014 Elsewhere) Immunizations CPT Code Status Date Vaccine Lot # [id number] Given 06/10/2017 Influenza Virus Vaccine, Quadrivalent, 3 Yr > [id number] Quad, Preserv Free 85417 Given 04/27/2016 Influenza Vaccine High Dose PF [id number] 23010 Given 09/16/2015 Tdap (Adacel) [id number] 00074 Given 06/06/2015 Influenza Virus Vaccine, Quadrivalent, 3 Yr > [id number] Quad, Preserv Free 29654 Given 06/11/2014 Influenza Virus Vaccine, Quadrivalent, 3 Yr > [id number] Quad, Preserv Free 06865 Given 06/11/2014 Prevnar-13 Pneumococcal Conjugate Vaccine [id number] 75354 Given 06/08/2013 Pneumovax 23 (PPSV23) 65+ years or high risk 2 to [id number] 66 year old 57050 Given 05/26/2013 Zoster Vaccine 35421 Given 05/04/2013 Influenza Vaccine-Preservative Free 3 Yrs And [id number] Above 47777 Given 05/19/2012 Influenza Vaccine-Preservative Free 3 Yrs And [id number] Above Vital Signs Date Vital Result Comment 04/15/2018 10:49am Weight 264.00 lb Weight 119.750 kg BP Systolic 142 mmHg BP Diastolic 78 mmHg Heart Rate 84 /min Body Temperature 97.5 F Respiratory Rate 16 /min O2 % BldC Oximetry 97 % 03/04/2018 11:11am Weight 263.00 lb Weight 119.297 [...] Result H/L Range Note Laboratory test 03/04/2018 [facility] Vitamin D 17.9 ng/mL Low 20-50 1 finding [phone] Total 25(Oh) Erythrocyte Sed Rate 48 mm/Hr High 0-40 2 Vitamin B12 473 pg/mL 180-914 3 Laboratory test 01/11/2018 [facility] TSH (Thyroid 2.22 mcIU/mL 0.34-5.60 4 finding [phone] Stim Horm) Hemoglobin A1c (Glyco HGB) 9.9 % High 4.0-5.6 5 Hepatitis C Antibody Nonreactive Nonreactive 6 CBC Auto Diff 01/11/2018 [facility] White Blood 10.6 10^3/uL 3.5-10.8 [phone] Count Red Blood Count 4.93 10^6/uL 4.00-5.40 [...] Blood Cells % 0.1 Lipid Profile 01/11/2018 [facility] Triglycerides 384 mg/dL 7 (Trig/Chol/HDL) [phone] Cholesterol 186 mg/dL 8 HDL Cholesterol 67.0 mg/dL 9 LDL Cholesterol 42 mg/dL 10 Comp Metabolic Panel 01/11/2018 [facility] Sodium 138 mmol/L 135-145 [phone] Potassium 4.1 mmol/L 3.5-5.0 Chloride 101 mmol/L [...] 78-110 finding [phone] Moniter Statin 12/25/2016 [facility] Ast (Sgot) 21 U/L 13- 39 12 [phone] Alt 20 U/L 7-52 13 Lipid Profile 12/25/2016 [facility] Triglycerides 383 mg/dL 14 (Trig/Chol/HDL) [phone] Cholesterol 169 mg/dL 15 HDL Cholesterol 68.5 mg/dL 16 LDL Cholesterol 24 mg/dL 17 CBC Auto 09/03/2016 [facility] White Blood 11.1 10^3/ uL High 3.5-10.8 Diff [phone] Count Red Blood Count 4.98 10^6/uL 4.0-5.4 [...] Cells % 0 Comp Metabolic Panel 09/03/2016 [facility] Sodium 136 mmol/L 133-145 [phone] Potassium 4.4 mmol/L 3.5-5.0 Chloride 99 mmol/L [...] Egfr 87.9 >60 18 Lipid Profile 09/03/2016 [facility] Triglycerides 639 mg/dL 19 (Trig/Chol/HDL) [phone] Cholesterol 243 mg/dL 20 HDL Cholesterol 72.1 mg/dL 21 LDL Cholesterol (SEE NOTE) mg/dL 22 Laboratory test 09/03/2016 [facility] Hemoglobin A1c 6.9 % High Less 23 finding [phone] (Glyco HGB) than 6.0 Laboratory test 04/27/2016 [facility] Hemoglobin A1c 6.6 % High Less 24 finding [phone] (Glyco HGB) than 6.0 Lipid Profile 04/27/2016 [facility] Triglycerides 391 25 (Trig/Chol/HDL) [phone] mg/dL Cholesterol 203 mg/dL 26 HDL Cholesterol 68.6 mg/dL 27 LDL Cholesterol 56 mg/dL 28 Basic Metabolic 04/27/2016 [facility] Sodium 136 mmol /L 133-145 Panel [phone] Potassium 4.6 mmol/L 3.5-5.0 Chloride 98 mmol/L Low 101-111 Co2 Carbon Dioxide 31 mmol/L 22-32 Anion Gap 7 mmol/L 2-11 Glucose 117 mg/dL High 70-100 Blood Urea Nitrogen 26 mg/dL High 6-24 Creatinine 0.89 mg/dL 0.51-0.95 BUN/Creatinine Ratio 29.2 High 8-20 Calcium 10.0 mg/dL 8.6-10.3 Egfr Non- 63.1 >60 Egfr 81.1 >60 29 Statin 11/06/2015 [facility] Ast (Sgot) 16 U/L 13- 39 [phone] Alt (SGPT) 18 U/L 7-52 Lipid Profile 11/06/2015 [facility] Triglycerides 237 mg/dL 30 (Trig/Chol/HDL) [phone] Cholesterol 163 mg/dL 31 HDL Cholesterol 75.8 mg/dL 32 LDL Cholesterol 40 mg/dL 33 Laboratory test 09/21/2015 [facility] Calcium 10.1 mg /dL 8.6-10.3 finding [phone] Pthi 09/21/2015 [facility] Calcium (PTH 10.2 mg/dL 8.6-10.3 [phone] Intact) PTH Intact 8.8 pmol/L 1.3-9.3 Laboratory test 09/21/2015 [facility] Calcium 5.17 mg /dL 4.65-5.28 finding [phone] Ionized CBC Auto Diff 09/16/2015 [facility] White Blood 8.9 10^3/uL 3.5-10.8 [phone] Count Red Blood Count 4.72 10^6/uL 4.0-5.4 [...] Cells % 0.1 Comp Metabolic Panel 09/16/2015 [facility] Sodium 136 mmol/L 133-145 [phone] Potassium 4.2 mmol/L 3.5-5.0 Chloride 98 mmol/L [...] Gap 7 mmol/L 2-11 Lipid Profile 09/16/2015 [facility] Triglycerides 552 mg/dL 35 (Trig/Chol/HDL) [phone] Cholesterol 248 mg/dL 36 HDL Cholesterol 60.1 mg/dL 37 Laboratory test 09/16/2015 [facility] TSH (Thyroid 1.17 ?IU/mL 0.34-5.60 38 finding [phone] Stim Horm) Hemoglobin A1c (Glyco HGB) 6.6 % High Less than 6.0 39 Laboratory test 06/09/2015 [facility] C. difficile SEE RESULT 40 finding [phone] PCR BELOW CBC Auto Diff 06/09/2015 [facility] White Blood 5.9 10^3/uL 4.8-10 [phone] Count .8 Red Blood Count 5.01 10^6/uL [...] Cells % 0 Comp Metabolic Panel 06/09/2015 [facility] Sodium 136 mmol/L 133-145 [phone] Potassium 3.7 mmol/L 3.5-5.0 Chloride 101 mmol/L [...] Egfr 70.3 >60 41 Laboratory test 06/09/2015 [facility] Lipase 16 U/L 11.0-82.0 finding [phone] C Reactive Protein 67.96 mg/L High < 5.00 42 Lactic Acid 1.8 mmol/L 0.5-2.2 Urinalysis Profile 06/09/2015 [facility] Urine Color Yellow [phone] Urine Appearance Cloudy Urine Specific [place] 1.018 1.010-1.030 Urine pH 5.0 5-9 Urine [...] Hyaline Casts Present Absent Laboratory test 06/09/2015 [facility] Urine Culture SEE RESULT 43 finding [phone] BELOW CBC Auto Diff 03/14/2015 [facility] White Blood 8.4 10^3/uL 4.8-10 [phone] Count .8 Red Blood Count 4.98 10^6/uL [...] Blood Cells % 0 Laboratory test 03/14/2015 [facility] Hemoglobin A1c 7.2 % High Less than 44 finding [phone] (Glyco HGB) 6.0 Basic Metabolic 03/14/2015 [facility] Sodium 138 133-145 Panel [phone] mmol/L Potassium 4.5 mmol/L 3.5-5.0 Chloride 101 mmol/L 101-111 Co2 Carbon Dioxide 28 mmol/L 22-32 Anion Gap 9 mmol/L 2-11 Glucose 147 mg/dL High 70-100 Blood Urea Nitrogen 20 mg/dL 6-24 Creatinine 0.79 mg/dL 0.51-0.95 BUN/Creatinine Ratio 25.3 High 8-20 Calcium 10.3 mg/dL 8.6-10.3 Egfr Non- 72.6 >60 Egfr 93.4 >60 45 Comp Metabolic Panel 11/12/2014 [facility] Sodium 137 mmol/L 133-145 [phone] Potassium 4.7 mmol/L 3.5-5.0 Chloride 99 mmol/L [...] Egfr 93.6 >60 46 Laboratory test 11/12/2014 [facility] Hemoglobin A1c 6.8 % High Less than 47 finding [phone] 6.0 CBC No Diff 11/12/2014 [facility] White Blood 9.9 4.8-10.8 [phone] Count 10^3/uL Red Blood Count 5.11 10^6/uL 4.0-5.4 Hemoglobin 14.1 g/dL 12.0-16.0 Hematocrit 42 % 35-47 Mean Corpuscular Volume 81 fL 80-97 Mean Corpuscular Hemoglobin 28 pg 27-31 Mean Corpuscular HGB Conc 34 g/dL 31-36 Red Cell Distribution Width 15 % 10.5-15 Platelet Count 226 10^3/uL 150-450 Mean Platelet Volume 9 um3 7.4-10.4 Laboratory test 08/28/2014 [facility] Calcium 11.0 mg /dL High 8.6-10.3 finding [phone] Pthi 08/28/2014 [facility] PTH Intact 5.6 pmol/L 1.3-9.3 [phone] Calcium (PTH Intact) 11.0 mg/dL High 8.6-10.3 Basic Metabolic 08/28/2014 [facility] Sodium 138 mmol /L 133-145 Panel [phone] Potassium 4.1 mmol/L 3.5-5.0 Chloride 100 mmol/L Low 101-111 Co2 Carbon Dioxide 28 mmol/L 22-32 Anion Gap 10 mmol/L 2-11 Glucose 145 mg/dL High 70-100 Blood Urea Nitrogen 19 mg/dL 6-24 Creatinine 1.10 mg/dL High 0.51-0.95 BUN/Creatinine Ratio 17.3 8-20 Egfr Non- 49.7 >60 Egfr 63.9 >60 48 Basic Metabolic 08/14/2014 [facility] Sodium 136 mmol /L 133-145 Panel [phone] Potassium 4.4 mmol/L 3.5-5.0 Chloride 98 mmol/L Low 101-111 Co2 Carbon Dioxide 31 mmol/L 22-32 Anion Gap 7 mmol/L 2-11 Glucose 95 mg/dL 70-100 Blood Urea Nitrogen 18 mg/dL 6-24 Creatinine 0.75 mg/dL 0.51-0.95 BUN/Creatinine Ratio 24.0 High 8-20 Calcium 11.2 mg/dL High 8.6-10.3 Egfr Non- 77.3 >60 Egfr 99.4 >60 49 Urinalysis Profile 08/09/2014 [facility] Urine Color Straw [phone] Urine Appearance Cloudy Urine Specific [place] 1.018 1.010-1.030 Urine pH 5.0 5-9 Urine Urobilinogen Negative Negative Urine Ketones Negative Negative Urine Protein 2+(100 mg/dL) Negative Urine Leukocytes Negative Negative Urine Blood 3+ Negative * * Negative 50 Urine Nitrite Negative Negative Urine Bilirubin Negative Negative Urine Glucose Negative Negative Urine Red Blood Cell 3+(>10/hpf) Absent Urine Squamous Epithelial Cell Present Absent Laboratory test 08/09/2014 [facility] C Reactive 28.08 mg/L High < 5.00 51 finding [phone] Protein Comp Metabolic 08/09/2014 [facility] Sodium 133 mmol/ L 133-145 Panel [phone] Potassium 4.0 mmol/L 3.5-5.0 Chloride 94 mmol/L [...] Egfr 73.9 >60 52 CBC Auto 08/09/2014 [facility] White Blood 14.6 10^3/ uL High 4.8-10.8 Diff [phone] Count Red Blood Count 4.95 10^6/uL 4.0-5.4 [...] Blood Cells % 0.1 Laboratory test 06/11/2014 [facility] Hemoglobin A1c 7.3 % High Less than 53 finding [phone] 6.0 Lipid Profile 06/11/2014 [facility] Triglycerides 348 54 (Trig/Chol/HDL) [phone] mg/dL Cholesterol 202 mg/dL 55 HDL Cholesterol 66.9 mg/dL 56 LDL Cholesterol 66 mg/dL 57 Urine DIP 06/11/2014 [facility] House [facility] Specific [place] 1.025 High 1.01-1.02 (607)- - Urine pH 5 5-6 Leukocytes NEG Neg Urine Nitrites NEG Neg Total Protein, Urine +30 High Neg Urine Glucose NORM Norm Urine Ketones NEG Neg Urobilinogen NORM Norm Urine Bilirubin NEG Neg Urine Blood 250 High Neg CBC Auto Diff 05/15/2014 [facility] White Blood 10.6 10^3/uL 4.8-10.8 [phone] Count Red Blood Count 4.95 10^6/uL 4.0-5.4 [...] Cells % 0.1 Comp Metabolic Panel 05/15/2014 [facility] Sodium 137 mmol/L 133-145 [phone] Potassium 4.4 mmol/L 3.7-5.6 Chloride 98 mmol/L [...] Egfr 107.7 >60 58 Laboratory test 05/15/2014 [facility] C Reactive 28.47 mg/L High < 5.00 59 finding [phone] Protein Anti Double Stranded Dna Negative Negative Cyclic Citrullinated Pept IgG <15.6 U 60 Creatine Kinase 53 U/L 10-223 Lyme Western 05/15/2014 [facility] Lyme Disease Negative Negative Blot [phone] IgG Ab WB Lyme Disease IgG Bands Present No bands detecte <SEE NOTE> kDa 61 Lyme Disease IgM Ab WB Negative Negative Lyme Disease IgM Bands Present No bands detecte <SEE NOTE> kDa 62 Lyme Disease Interpretation See Comment 63 Laboratory test 05/15/2014 [facility] Rheumatoid Factor <15 IU/mL <15 64 finding [phone] Bess (Anti-Nuclear AB) Screen Negative Negative Comp Metabolic Panel 12/07/2013 [facility] Sodium 137 mmol/L 133-145 [phone] Potassium 4.6 mmol/L 3.7-5.6 Chloride 99 mmol/L [...] 104.2 >60 65 CBC Auto Diff 12/07/2013 [facility] White Blood 10.2 10^3/uL 4.8-10.8 [phone] Count Red Blood Count 4.96 10^6/uL 4.0-5.4 [...] Blood Cells % 0.1 Lipid Profile 12/07/2013 [facility] Triglycerides 237 mg/dL 66 (Trig/Chol/HDL) [phone] Cholesterol 217 mg/dL 67 HDL Cholesterol 72.3 mg/dL 68 LDL Cholesterol 97 mg/dL 69 Laboratory test 12/07/2013 [facility] TSH (Thyroid 2.58 IU/mL 0.34-5.60 finding [phone] Stimulating Horm) Hemoglobin A1c 7.1 % High Less than 6.0 70 Human Papilloma 06/09/2013 [facility] Human Papillomavirus See Comment 71 [phone] Source Human Papillomavirus High Risk Negative Negative 72 Laboratory test 06/08/2013 [facility] Cytology RUN DATE: 73 finding [phone] 06/09/ <SEE NOTE> Urine DIP 06/08/2013 In House Lab Leukocytes neg Neg (607)- - Urine Nitrites neg Neg Urine pH 5 5-6 Total Protein, Urine 1+ High Neg Urine Glucose norm Norm Urine Ketones neg Neg Urobilinogen norm Norm Urine Bilirubin neg Neg Urine Blood 250 High Neg Specific [place] 1.025 High 1.01-1.02 CBC Auto Diff 05/04/2013 [facility] White Blood 10.2 10^3/uL 4.8-10.8 [phone] Count Red Blood Count 5.17 10^6/uL 4.0-5.4 [...] Cells % 0.1 Comp Metabolic Panel 05/04/2013 [facility] Sodium 141 mmol/L 133-145 [phone] Potassium 4.3 mmol/L 3.5-5.0 Chloride 103 mmol/L [...] >60 Egfr 108.0 >60 74 Laboratory 05/04/2013 [facility] TSH (Thyroid 1.90 0.34-5.60 test finding [phone] Stimulating miu/mL Horm) Lipid Profile 05/04/2013 [facility] Triglycerides 221 mg/dL High 40-200 (Trig/Chol/HDL [phone] ) Cholesterol 212 mg/dL High Less than 200 HDL Cholesterol 73 mg/dL High 40-60 75 Cholesterol/HDL Ratio 2.9 Average 1-4.44 LDL Cholesterol 94.8 Less Than 100 76 Laboratory test 05/04/2013 [facility] Hemoglobin A1c 7.1 % High Less 77 finding [phone] than 6.0 Laboratory test 05/16/2012 [facility] Hemoglobin A1c 6.8 % High Less 78 finding [phone] than 6.0 CBC Auto Diff 01/28/2012 [facility] White Blood 11.1 CUMM High 4.8-10.8 [phone] Count Red Cell Count 5.18 CUMM 4.2-5.4 Hemoglobin 13.7 g/dL 12.0-16.0 Hematocrit 41 % 35-47 Mean Corpuscular Volume 80 um3 79-97 Mean Corpuscular Hemoglob 27 pg 27-31 Mean Corpuscular HGB Cone 33 g/dL 32-36 Redcell Distribution WDTH 14 % 10.5-15 Platelet Count 223 CUMM 150-450 Mean Platelet Volume 9.5 um3 7.4-10.4 Absolute Neutrophil Count 7.8 High 1.5-7.7 79 Comp Metabolic Panel 01/28/2012 [facility] Sodium 139 mmol/L 135-145 [phone] Potassium 3.9 mmol/L 3.5-5.0 Chloride 101 mmol/L [...] 92.9 > 60 82 Laboratory test 01/28/2012 [facility] TSH 1.78 0.34-5.60 finding [phone] MIU/ML Lipid Profile 01/28/2012 [facility] Triglyceride 301 mg/dL High 40-200 (Trig/Chol/HDL) [phone] Cholesterol 215 mg/dL High Less Than 200 83 High Density Lipoprotein 72 mg/dL High 40-60 84 Cholesterol/HDL Ratio 2.99 AVERAGE 1-4.44 Low Density Lipoprotein 83 mg/dL Less Than 100 85 Laboratory test 01/28/2012 [facility] Hemoglobin A1c 6.6 % High Less 86 finding [phone] Than 6.0 Manual 01/28/2012 [facility] Polysegmented 81 % 38 -83 Differential [phone] Neutrophil Lymphocyte 16 % Low 25-47 Monocyte 2 % 0-13 Eosinophil 1 % 0-6 RBC Morphology NORMAL 1 [id number] 2 [id number] 3 Normal Range 180 to 914 Indeterminate Range 145 to 180 Deficient Range <145 4 [id number] 5 Therapeutic target for the treatment of diabetes mellitus patients is <7% HBA1C, and in selective patients <6.0%. Please refer to [place] [employer] diabetic care guidelines for further information. 6 [id number] 7 Desirable: <150 Borderline High: 150-199 High: [...] 5 Kidney failure <15 (or dialysis) 12 [id number] 13 [id number] 14 Desirable <150 Borderline high 150-199 High [...] and in selective patients <6.0%.Please refer to [place] [employer] Diabetic care guidelines for further information. 24 Therapeutic target for the treatment of diabetes Mellitus patients is <7% HBA1C, and in selective patients <6.0%.Please refer to [place] [employer] Diabetic care guidelines for further [...] as well Copy Result to: LIAM JEWELL ([id number]) 39 Therapeutic target for the treatment of diabetes Mellitus patients is <7% HBA1C, and in selective patients <6.0%.Please refer to [place] [employer] Diabetic care guidelines for further information. 40 SEE RESULT BELOW Name: JENNI TIDWELL : [address]: Ruben Reynaga DO Acct: [id number] Unit: [id number] AGE: 69 Location: [facility] Re06/09/15 SEX: F Status: REG REF SPEC: [id number] ANDREW: 06/09/[address]: Ruben Reynaga DO REQ: [id number] RECD: 06/10/15 STATUS: RODRIGO REBOLLEDO DR: Adela Pandey [employer] ROOM SUPERVISOR _ SOURCE: STOOL SPDESC: ORDERED: Dusty daniel [...] performed at Main Lab DEPARTMENT OF PATHOLOGY, [address] [place] [address] Benny Tian M.D. Director [facility] # [id number] Patient: JENNI TIDWELL [id number] (Continued) Specimen: [id number] Collected: 06/09/15-1999 Received: 06/10/15-1532 (Continued) Procedure Result Verified Site Shiga Toxin 1 2 Final (continued) 06/11/15- 1038 C. difficile PCR Final 06/10/15- 1740 ML [...] this assay. * ML - MAIN LAB ([facility]) . END OF REPORT * ML=Testing performed at Main Lab DEPARTMENT OF PATHOLOGY, [address] [place] [address] Benny Tian M.D. Director [facility] # [id number] 41 Because ethnic data is not always [...] [address]: Ruben Reynaga DO Acct: [id number] Unit: [id number] AGE: 69 Location: ED Re06/09/15 SEX: F Status: DEP ER SPEC: [id number] ANDREW: 06/09/[address]: Ruben Reynaga DO REQ: [id number] RECD: 06/09/15 STATUS: RODRIGO REBOLLEDO DR: Khadra Willett TIRE ROOM SUPERVISOR _ SOURCE: URINE SPDESC: ORDERED: Urine Culture Procedure Result Verified Site Urine Culture Final 06/11/15- 0712 ML Organism 1 NORMAL TRIPP [place] Count 1-10,000 (Few) CFU/ML * ML - MAIN LAB ([facility]) . END OF REPORT * ML=Testing performed at Main Lab DEPARTMENT OF PATHOLOGY, [address] [place] [address] Benny Tian M.D. Director [facility] # [id number] 44 Therapeutic target for the treatment of diabetes Mellitus patients is <7% HBA1C, and in selective patients <6.0%.Please refer to [place] [employer] Diabetic care guidelines for further [...] and in selective patients <6.0%.Please refer to [place] [employer] Diabetic care guidelines for further [...] and in selective patients <6.0%.Please refer to [place] [employer] Diabetic care guidelines for further [...] REFERENCE VALUE <20.0 (Negative) Test Performed by: [place] [address] Tar Chaser: Jon Guardado M.D. 61 No bands detected [...] screening test (e.g., EIA). Test Performed by: [place] [address] Tar Chaser: Jon Guardado M.D. 64 Test Performed by: [place] [address] Tar Chaser: Jon Guardado M.D. 65 Because ethnic data [...] and in selective patients <6.0%.Please refer to [place] [employer] Diabetic care guidelines for further information. 71 RESULT: Ectocervical/Endocervical 72 For types 16, 18, 31, 33, 35, 39, 45, 51, 52, 56, 58, 59 and 68. Test Performed by: [address] [address] Tar Chaser: Ha Frankel III, M.D. 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 Results will be reported separately. A. Ectocervical/Endocervical Specimen Adequacy: Satisfactory of evaluation Transformation zone component not identified Patient Information: HPV: High risk HPV DNA testing regardless of pap results. Actual Specimen Date: 06/08/13 Other Pertinent History: No History Given Signed (signature on file) NIKHIL Mena (ASCP) 06/09/13 1209 This Pap test was evaluated with the assistance of the ThinPrep Test Imaging System. Due to cytologic findings at the crown attacher microscope, comprehensive manual rescreening by a Slots Manager may be required. The Pap Smear is [...] performed at Main Lab DEPARTMENT OF PATHOLOGY, [address] [place] [address] Benny Tian M.D. Director [facility] Permit #[id number] 74 Because ethnic data is not always [...] and in selective patients <6.0%.Please refer to [place] [employer] Diabetic care guidelines for further information. 78 Therapeutic target for the treatment of diabetes Mellitus patients is <7% HBA1C, and in selective patients <6.0%.Please refer to [place] [employer] Diabetic care guidelines for further information. 79 Imm. NE 1 80 Anion gap measurement may be of limited value in the presence of any alkalosis, especially in a combined acid base disorder. . 81 A metabolite of Naproxen, O-desmethylnaproxen, has been shown to interfere with the [place] method for measuring total bilirubin. Samples from [...] IN SELECTIVE PATIENTS <6.0%. PLEASE REFER TO [place] [employer] DIABETIC CARE GUIDELINES FOR FURTHER INFORMATION. Procedures Date Code Description Status 01/11/2018 12125 EKG, at Least 12 Leads w/Interpretation and Report Completed 06/06/2015 88898 Removal-Impacted Cerumen Completed 09/24/2011 [id number] Mammogram Completed Encounters Type Date Location Provider Dx Diagnosis Office Visit 03/04/2018 Main Office Khadra Willett, E11.65 Type 2 diabetes 11:30a [employer] mellitus with hyperglycemia M79.1 Myalgia Office Visit 02/08/2018 11:30a Main Office Khadra Lara E11.65 Type 2 diabetes Storm, [employer] mellitus with hyperglycemia M79.1 Myalgia Office Visit 01/11/2018 1:30p [facility] Khdara Lara Z00.00 Encntr for Storm, [employer] general adult medical exam w/o abnormal findings E11.9 Type 2 diabetes mellitus without complications E78.5 Hyperlipidemia, unspecified M25.511 Pain in right shoulder I83.211 Varicos vn of r low extrem w ulc of thigh and inflammation Office Visit 06/10/2017 10:45a Main Office Khadra Lara S31.804A Puncture wound w Storm, [employer] foreign body of unsp buttock, init encntr Z23 Encounter for immunization Office Visit 09/03/2016 2:30p Main Office Andreaswnti R. E11.9 Type 2 diabetes Storm, [employer] mellitus without complications M25.511 Pain in right shoulder E66.9 Obesity, unspecified E78.5 Hyperlipidemia, unspecified Office Visit 04/27/2016 3:00p Main Office Andreaswnti R. E11.9 Type 2 diabetes Storm, [employer] mellitus without complications M17.9 Osteoarthritis of knee, unspecified E78.5 Hyperlipidemia, unspecified Z23 Encounter for immunization Office Visit 03/03/2016 3:00p Main Office Andreaswoctavia RBigg M17.9 Osteoarthritis of Storm, [employer] knee, unspecified E11.9 Type 2 diabetes mellitus without complications Office Visit 01/23/2016 11:00a Main Office Khadra Lara M79.7 Fibromyalgia Storm, [employer] Office Visit 12/19/2015 2:15p Main Office Khadra Lara M17.9 Osteoarthritis of Storm, [employer] knee, unspecified Office Visit 11/14/2015 1:30p Main Office Kyle S93.401A Sprain of MD Deric unspecified ligament of right ankle, init encntr Office Visit 11/08/2015 2:00p Main Office Khadra RBigg M79.7 Fibromyalgia Storm, [employer] M17.9 Osteoarthritis of knee, unspecified Office Visit 09/16/2015 1:30p Main Office Khadra Willett, Z00.00 Encntr for general [employer] adult medical exam w/o abnormal findings M25.511 Pain in right shoulder E11.9 Type 2 diabetes mellitus without complications Z23 Encounter for immunization Office Visit 03/14/2015 9:30a Main Office Andreaswntjake R. 250.00 Diabetes Mellitus Storm, [employer] W/O Compl Type II Or Unspec Controlled Office Visit 01/22/2015 11:15a Main Office Andreaswntjake R. 054.9 Herpes Simplex W/O Storm, [employer] Complication Office Visit 01/11/2015 10:00a Main Office Andreaswntjake RBigg 729.1 Myalgia & Myositis Storm, [employer] Unspec V76.10 Screening For Malignant Neoplasm Breast Office Visit 12/18/2014 10:00a Main Office Khadra Vincent. 729.1 Myalgia & Myositis Storm, [employer] Unspec Office Visit 12/04/2014 10:15a Main Office Andreaswnti R. 844.9 Sprains & Strains Storm, [employer] Knee & Leg Unspec Office Visit 11/12/2014 10:00a Main Office Andreaswnti R. 250.00 Diabetes Mellitus Storm, [employer] W/O Compl Type II Or Unspec Controlled Office Visit 10/15/2014 2:45p Main Office Andreaswnti R. 782.9 Skin & Integumentary Storm, [employer] Tissue Other Symptoms 250.00 Diabetes Mellitus W/O Compl Type II Or Unspec Controlled Office Visit 08/14/2014 11:45a Main Office Khadra Willett, 592.0 Calculus Of Kidney [employer] 591 Hydronephrosis Office Visit 06/11/2014 8:45a Main Office Andreaswnti R. V70.0 Examination General Storm, [employer] Medical Routine AT Health Care Facility 250.00 Diabetes Mellitus W/O Compl Type II Or Unspec Controlled 787.91 Diarrhea V72.62 Laboratory Exam Ordered as Part Of Routine General Med Exam V04.81 Need For Prophylactic Vaccination & Inoculation/Influenza V03.82 Streptococcus Pneumoniae Vaccination Spec Other Office Visit 05/15/2014 11:00a Main Office Khadra Lara 729.1 Myalgia & Myositis Storm, [employer] Unspec Office Visit 01/12/2014 2:00p Main Office Lauren Acevedo8.85 Spasm Muscle Moncho Moya Office Visit 12/07/2013 10:00a Main Office Andreaswnti R. 250.00 Diabetes Mellitus Storm, [employer] W/O Compl Type II Or Unspec Controlled Office Visit 06/08/2013 9:00a Main Office Andreaswnti R. V03.82 Streptococcus Storm, [employer] Pneumoniae Vaccination Spec Other V70.0 Examination General Medical Routine AT Health Care Facility 250.00 Diabetes Mellitus W/O Compl Type II Or Unspec Controlled V03.82 Streptococcus Pneumoniae Vaccination Spec Other Office Visit 05/04/2013 10:00a Main Office Shawnti R. 250.00 Diabetes Mellitus Brennon, [employer] W/O Compl Type II Or Unspec Controlled V04.81 Need For Prophylactic Vaccination & Inoculation/Influenza Office Visit 01/17/2013 Main Office Adela Pandey, 451.89 Phlebitis & 8:45a [employer] Thrombophlebitis Other Office Visit 10/18/2012 Main Office Khadra Lara 386.11 Vertigo Benign 11:45a Brennon [employer] Paroxysmal Position Office Visit 09/23/2012 Main Office Khadra Lara 724.5 Backache Unspec 12:00p SUSANNE WillettP-C Office Visit 09/05/2012 Main Office Khadra Lara 729.1 Myalgia & Myositis 2:45p SUSANNE WillettP-C Unspec 715.09 Osteoarthrosis Generalized Multiple Sites Office Visit 05/19/2012 10:00a Main Office Khadra R. 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 250.02 Diabetes Mellitus Brennon, [employer] W/O Compl Type II Or Unspec Type Uncontrol Office Visit 01/28/2012 2:00p Main Office Khadra Lara 296.30 Depressive Disorder rBennon [employer] Major Recurrent Unspec 715.09 Osteoarthrosis Generalized Multiple Sites 780.57 Unspecified Sleep Apnea 790.29 Other Abnormal Glucose Plan of Treatment Future Appointment(s):05/17/2018 10:30 am - BILLY Camarena at Main Mrzkuc9404/15/2018 - JEAN CARLOS CamarenaCE11.65 Type 2 diabetes mellitus with hyperglycemiaComments:continue to titrate insulin, [facility], discussed bringing to these appts as he is bringing sweets into the homeFollow up:referral to [place] [facility] for DM and obesity follow up in one monthRecommendations:continue to titrate your insulin upward until your fasting sugars are 80 to 140F32.89 Other specified depressive episodesRecommendations:continue to take your vitamin D, see if your insurance covers therapy, this will be helpful
--- OUTSIDE RECORDS SUMMARY | 2018-04-15 20:27 | XMS REPORT ---
:1945 External Reference #:[id number] Author Organization [facility] Address [address] [place] [address] Phone [phone] Care Team Providers Name Role Phone BILLY Camarena Care Team Information Regulatory Compliance Director Unavailable Payers Type Date Identification Payment Subscriber Numbers Provider Health Maintenance Effective: Policy Number: Family [facility] Jenni Tidwell Organization (HMO) 01/24/2012 [id number] [place] Expires: 11/23/2012 PayID: [id number] [address] [address] [place] [address] Medicare Primary Expires: 01/22/2013 Policy Number: Medicare - Bswny Jenni Alejandra [id number] Umd Yaw PayID: [id number] [address] [place] [address] Commercial Effective: Policy Number: [facility] Medicare Jenni Tidwell 01/23/2013 [id number] [facility] Group Number: [id number] [address] [address] PayID: [id number] E[place]ENCE [place] [id number] Medigap Part B Effective: Policy Number: Medicaid After Jenni Tidwell 11/23/2014 [id number] Medicare Expires: 09/22/2017 Group Name: 2 1 [address] PayID: [id number] [place] [address] Advance Directives Type Date Description Status Comment Other Directive 01/12/2014 Health Care Proxy Current and Verified Problems Date Description Provider Status Onset: 06/06/2015 Diabetic peripheral neuropathy RADHA Camarena-Ny Active associated with type 2 diabetes mellitus Onset: 06/06/2015 Type 2 diabetes mellitus RADHA Camarena-Ny Active Onset: 08/22/2015 Primary fibromyalgia syndrome RADHA Camarena-Ny Active Social History Type Date Description Comments Lives With Alone lives in [facility], first floor apartment with a walk in shower Diet Healthy, Well Balanced tries to eat a diebetic diet based in the plate method Pets 1 dog cocker spaniel Cigarette Use Never Smoked Cigarettes ETOH Use Rarely consumes alcohol Recreational Drug Use Denies Drug Use Smoking Patient has never smoked Daily Caffeine Does Not Consume Caffeine Enjoy Exercising Enjoys exercising she is walking every day, someties her arthritis slows her down, she thinks this helps her fibromyalgia Allergies, Adverse Reactions, Alerts Date Description Reaction Status Severity Comments 01/28/2012 NKDA active Medications Medication Date Status Form Strength Qnty SIG Indications Ordering Provider Luis Fernando Banks 02/08 Active Solution 300Unit/M 3ml inject 20 E11.65 Pen-Injec L units, Marco Willett, t increase by 2 FAMILY MANAGER-C units every other day until fasting sugars are 80-120...max daily dose 80 units Pen Holden 02/08 Active Misc 31G X 6 100un use as E11.65 mm its directed with Marco Willett, insulin pen FAMILY MANAGER-C once daily and as needed. Freestyle 10/06 Active Kit W/Device 1unit use as E11.9 Shawnti Insulinx Blood s needed. 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; maximum daily dose=2 Lipitor Active Tablets 20mg 90tab take 1 by s mouth daily Marco Willett, for FAMILY MANAGER-C cholesterol Lyrica 08/06 Active Capsules 75mg 90cap take one M60.80 s capsule by Marco Willett, mouth every FAMILY MANAGER-C morning take two capsules by mouth at bedtime; maximum daily dose=3 Cpap 05/16 Active replacement G47.33 hose, mask Marco Willett, and any other FAMILY MANAGER-C needed parts dx: g47.33 Freestyle Lite 06/19 Active Strip 50uni Use as Shawnti Test ts Directed To Marco Willett Test Blood FAMILY MANAGER-C Sugars Daily And as Needed Depend 06/11 Active Misc 90uni wear daily nt ts for urine Marco Willett, [employer] incontinence, FAMILY MANAGER-C Large/X-Large change as Max Absorb needed Caltrate 600+D 12/07 Active Tablets 600-400mg -Unit Marco Willett FAMILY MANAGER-C Multi Complete 12/07 Active Capsules daily Marco Willett FAMILY MANAGER-C Nabumetone 09/05 Active Tablets 750mg 60tab take two M15.0 s tablets by Marco Willett, mouth every FAMILY MANAGER-C morning Cpap 05/19 Active 12CM wear QHS while Marco Willett, sleeping FAMILY MANAGER-C Cymbalta 01/[address] 60mg 30cap take one F33.9 Part s capsule by Marco Willett, mouth every FAMILY MANAGER-C day Meclizine HCL 10/19 Hx Tablets 25mg 30tab 1 take by Kyle s mouth tablet He[place]ks - 3 times per MD 01/11 day for sensation of motion Oxycodone HCL 11/07 Hx Tablets 5mg 60tab 1 or 2 by M17.9 s mouth three Marco Willett, - times daily FAMILY MANAGER-C 06/10 if needed for severe pain, replaces hydrocodone Lyrica 07/02 Hx Capsules 150mg 60cap Take One M60.80 s Capsule By Marco Willett, - Mouth Twice A FAMILY MANAGER-C 08/06 Day; Maximum Daily Dose=2 Diabetic Shoes 01/11 Hx 1Pair custom fit 250.00 diabetic Marco Willett, - shoes dx 250 FAMILY MANAGER-C 01/21 Lyrica 01/04 Hx Capsules 75mg 90cap 1 by mouth 729.1 s three times Marco Willett, - daily for FAMILY MANAGER-C 07/02 pain Lyrica 12/18 Hx Capsules 150mg 60cap 1 by mouth 729.1 s twice daily Marco Willett, - FAMILY MANAGER-C 01/04 Lyrica 12/04 Hx Capsules 75mg 60cap 1 by mouth 844.9 s twice a day Marco Willett, - FAMILY MANAGER-C 12/06 Oxycodone HCL 12/04 Hx Tablets 5mg 20twe 1 or 2 before 844.9 nty bed if needed Marco Willett, - for pain FAMILY MANAGER-C 06/06 Clarithromycin 11/07 Hx Tablets 500mg 20tab 1 by mouth s twice a day x Patricia, - 10 days FAMILY MANAGER-C 11/07 Triamcinolone 10/15 Hx Cream 0.5% 15gm apply small 782.9 [facility] Acet amount to Marco Willett, - affected area FAMILY MANAGER-C 06/10 twice daily Diabetic Shoes 08/14 Hx 1Pair custom fit diabetic Marco Willett, - shoes FAMILY MANAGER-C 08/24 Metformin HCL 06/26 Hx Tablets 500mg 60tab take one s tablet by Marco Willett, - mouth twice a FAMILY MANAGER-C 12/18 day with food Lyrica 05/15 Hx Capsules 75mg 60cap 1 by mouth 729.1 s twice a day Marco Willett, - FAMILY MANAGER-C 10/15 Vitamin B 12/07 Hx Tablets daily Marco Willett, - FAMILY MANAGER-C 01/11 Zostavax 06/08 Hx Solution [id number]/ QS inject 0.65ml V70.0 Rec 0.65ML into Marco Willett, - subqutaneous FAMILY MANAGER-C 06/06 tissue once Free Style Lite 05/04 Hx Test 50uni use to test Strips ts blood sugar Marco Willett, - daily and as FAMILY MANAGER-C 10/01 Meclizine HCL 10/18 Hx Tablets 25mg 30tab 1 po q6hr prn 386.11 s dizziness Marco Willett, - FAMILY MANAGER-C 05/04 Ondansetron Odt 10/18 Hx Tablets 8mg 30tab 1 po tid prn 386.11 Dispers s nausea Marco Willett, - FAMILY MANAGER-C 05/04 Cyclobenzaprine 09/23 Hx Tablets 10mg 30tab 1/2 or 1 po 724.5 wnti s tid for Marco Willett, - muscle spasm, FAMILY MANAGER-C 06/08 will cause tiredness Lyrica 09/05 Hx Capsules 75mg 60cap 1 po qhs for 729.1 s one week then Marco Willett, - increase to FAMILY MANAGER-C 06/08 Metformin HCL 01/31 Hx Tablets 500mg 60tab take 1 tablet s by mouth Marco Willett, - twice a day FAMILY MANAGER-C 05/19 with Cymbalta 01/[address] 60mg 1 po qd Part Marco Willett, - FAMILY MANAGER-C 01/27 Aleve 01/27 Hx Capsules 220mg 1 or 2 bid 715.09 Marco Willett, - FAMILY MANAGER-C 09/05 Medications Administered in Office Medication Date Status Form Strength Qnty SIG Indications Ordering Provider Rabies Vaccine Administered Injection Unknown (Received 014 Elsewhere) Rabies Vaccine Administered Injection Unknown (Received 014 Elsewhere) Rabies Vaccine Administered Injection Unknown (Received 014 Elsewhere) Rabies Vaccine Administered Injection Unknown (Received 014 Elsewhere) Rabies Vaccine Administered Injection Unknown (Received 014 Elsewhere) Immunizations CPT Code Status Date Vaccine Lot # [id number] Given 06/10/2017 Influenza Virus Vaccine, Quadrivalent, 3 Yr > [id number] Quad, Preserv Free 27782 Given 04/27/2016 Influenza Vaccine High Dose PF [id number] 18245 Given 09/16/2015 Tdap (Adacel) [id number] 41312 Given 06/06/2015 Influenza Virus Vaccine, Quadrivalent, 3 Yr > [id number] Quad, Preserv Free 49094 Given 06/11/2014 Influenza Virus Vaccine, Quadrivalent, 3 Yr > [id number] Quad, Preserv Free 48642 Given 06/11/2014 Prevnar-13 Pneumococcal Conjugate Vaccine [id number] 52571 Given 06/08/2013 Pneumovax 23 (PPSV23) 65+ years or high risk 2 to [id number] 66 year old 19983 Given 05/26/2013 Zoster Vaccine 69557 Given 05/04/2013 Influenza Vaccine-Preservative Free 3 Yrs And [id number] Above 24224 Given 05/19/2012 Influenza Vaccine-Preservative Free 3 Yrs And [id number] Above Vital Signs Date Vital Result Comment 03/04/2018 Weight 263.00 lb Weight in kg's 119.297 BP Systolic 140 mmHg BP Diastolic 78 mmHg Heart Rate 80 /min Body Temperature 97.5 F Respiratory Rate 16 /min 02/08/2018 Weight 265.00 lb Weight in kg's 120.204 BP Systolic 134 mmHg BP Diastolic 78 mmHg Heart Rate 82 /min Body Temperature 97.2 F Respiratory Rate 16 /min 01/11/2018 Weight 265.00 lb Weight in kg's 120.204 BP Systolic 138 mmHg BP Diastolic 92 mmHg Heart Rate 84 /min Body Temperature 98.1 F Respiratory Rate 18 /min O2 % BldC Oximetry 98 % Ra 06/10/2017 Weight 267.00 lb Weight in kg's 121.111 BP Systolic 160 mmHg BP Diastolic 90 mmHg Heart Rate 93 /min Body Temperature 98.2 F Respiratory Rate 20 /min O2 % BldC Oximetry 98 % 09/03/2016 Weight 262.00 lb Weight in kg's 118.843 BP Systolic 140 mmHg BP Diastolic 60 mmHg Heart Rate 94 /min Body Temperature 97.6 F Respiratory Rate 16 /min O2 % BldC Oximetry 95 % 04/27/2016 Weight 201.00 lb Weight in kg's 91.174 BP Systolic 142 mmHg BP Diastolic 65 mmHg Heart Rate 80 /min O2 % BldC Oximetry 98 % 03/03/2016 Weight 250.00 lb Weight in kg's 113.400 BP Systolic 144 mmHg BP Diastolic 66 mmHg Heart Rate 88 /min Body Temperature 99.3 F 01/23/2016 Weight 257.00 lb Weight in kg's 116.575 BP Systolic 140 mmHg BP Diastolic 80 mmHg Heart Rate 86 /min 12/19/2015 Weight 257.00 lb Weight in kg's 116.575 BP Systolic 138 mmHg BP Diastolic 86 mmHg Heart Rate 84 /min Body Temperature 98.3 F 11/14/2015 BP Systolic 120 mmHg BP Diastolic 70 mmHg Heart Rate 59 /min O2 % BldC Oximetry 98 % 11/08/2015 Weight 257.00 lb Weight in kg's 116.575 BP Systolic 164 mmHg BP Diastolic 78 mmHg Heart Rate 88 /min Body Temperature 98.1 F 09/16/2015 Weight 250.00 lb Weight in kg's 113.400 BP Systolic 159 mmHg BP Diastolic 70 mmHg Heart Rate 80 /min Height 61.5 inches 5'1.50" BMI (Body Mass Index) 46.5 kg/m2 06/06/2015 Weight 248.00 lb Weight in kg's 112.493 BP Systolic 136 mmHg BP Diastolic 84 mmHg Heart Rate 72 /min 03/14/2015 Weight 258.00 lb Weight in kg's 117.029 BP Systolic 150 mmHg BP Diastolic 80 mmHg Heart Rate 72 /min 01/22/2015 Weight 254.00 lb Weight in kg's 115.214 BP Systolic 170 mmHg BP Diastolic 78 mmHg Heart Rate 88 /min 01/11/2015 Weight 251.00 lb Weight in kg's 113.854 BP Systolic 144 mmHg BP Diastolic 70 mmHg Heart Rate 80 /min 12/18/2014 Weight 253.00 lb Weight in kg's 114.761 BP Systolic 172 mmHg BP Diastolic 76 mmHg Heart Rate 72 /min 12/04/2014 Weight 250.00 lb Weight in kg's 113.400 BP Systolic 130 mmHg BP Diastolic 88 mmHg Heart Rate 108 /min Body Temperature 98.3 F 11/12/2014 Weight 248.00 lb Weight in kg's 112.493 BP Systolic 160 mmHg BP Diastolic 72 mmHg Heart Rate 72 /min 10/15/2014 Weight 251.00 lb Weight in kg's 113.854 BP Systolic 160 mmHg BP Diastolic 84 mmHg Heart Rate 88 /min 08/14/2014 Weight 258.00 lb Weight in kg's 117.029 BP Systolic 148 mmHg BP Diastolic 78 mmHg Heart Rate 80 /min 06/11/2014 Weight 262.00 lb Weight in kg's 118.843 BP Systolic 168 mmHg BP Diastolic 70 mmHg Heart Rate 84 /min Height 62 inches 5'2" BMI (Body Mass Index) 47.9 kg/m2 05/15/2014 Weight 259.00 lb Weight in kg's 117.482 BP Systolic 180 mmHg BP Diastolic 80 mmHg Heart Rate 94 /min 01/12/2014 Weight 258.00 lb Weight in kg's 117.029 BP Systolic 144 mmHg BP Diastolic 86 mmHg Heart Rate 76 /min Body Temperature 97.4 F O2 % BldC Oximetry 96 % 12/07/2013 Weight 257.00 lb Weight in kg's 116.575 BP Systolic 142 mmHg BP Diastolic 78 mmHg Heart Rate 88 /min 06/08/2013 Weight 252.00 lb Weight in kg's 114.307 BP Systolic 152 mmHg BP Diastolic 78 mmHg Heart Rate 84 /min Height 62 inches 5'2" BMI (Body Mass Index) 46.1 kg/m2 05/04/2013 Weight 255.00 lb Weight in kg's 115.668 BP Systolic 136 mmHg BP Diastolic 74 mmHg Heart Rate 80 /min Height 61.25 inches 5'1.25" BMI (Body Mass Index) 47.8 kg/m2 01/17/2013 Weight 256.00 lb Weight in kg's 116.122 BP Systolic 166 mmHg BP Diastolic 76 mmHg Heart Rate 92 /min Body Temperature 99.4 F 10/18/2012 Weight 258.00 lb Weight in kg's 117.029 BP Systolic 140 mmHg BP Diastolic 90 mmHg Heart Rate 80 /min Body Temperature 98.2 F 09/23/2012 Weight 259.00 lb Weight in kg's 117.482 BP Systolic 130 mmHg BP Diastolic 70 mmHg Heart Rate 100 /min Body Temperature 97.6 F 09/05/2012 Weight 257.00 lb Weight in kg's 116.575 BP Systolic 140 mmHg BP Diastolic 84 mmHg Heart Rate 80 /min 05/19/2012 Weight 250.00 lb Weight in kg's 113.400 BP Systolic 134 mmHg BP Diastolic 76 mmHg Heart Rate 108 /min Body Temperature 97.3 F 03/18/2012 Weight 247.00 lb Weight in kg's 112.039 BP Systolic 150 mmHg BP Diastolic 90 mmHg Heart Rate 100 /min 01/28/2012 Weight 244.00 lb Weight in kg's 110.678 BP Systolic 130 mmHg BP Diastolic 74 mmHg Heart Rate 88 /min Height 62 inches 5'2" BMI (Body Mass Index) 44.6 kg/m2 O2 % BldC Oximetry 98 % Results Test Date Test Result H/L Range Note Laboratory test finding 03/04/2018 Vitamin D Total 25(Oh) 17.9 ng/mL Low 20-50 1 Erythrocyte Sed Rate 48 mm/Hr High 0-40 2 Vitamin B12 473 pg/mL 180-914 3 Laboratory test finding 01/11/2018 TSH (Thyroid Stim Horm) 2.22 mcIU/mL 0.34-5.60 4 Hemoglobin A1c (Glyco HGB) 9.9 % High 4.0-5.6 5 Hepatitis C Antibody Nonreactive Nonreactive 6 CBC Auto Diff 01/11/2018 White Blood Count 10.6 10^3/uL 3.5-10.8 Red Blood Count 4.93 10^6/uL 4.00-5.40 Hemoglobin [...] Red Blood Cells % 0.1 Lipid Profile (Trig/Chol/HDL) 01/11/2018 Triglycerides 384 mg/dL 7 Cholesterol 186 mg/dL 8 HDL Cholesterol 67.0 mg/dL 9 LDL Cholesterol 42 mg/dL 10 Comp Metabolic Panel 01/11/2018 Sodium 138 mmol/L 135-145 Potassium 4.1 mmol/L 3.5-5.0 Chloride 101 mmol/L [...] >60 Egfr 106.4 >60 11 Laboratory test finding 09/21/2017 Glucose By Moniter 347 High 78-110 Statin 12/25/2016 Ast (Sgot) 21 U/L 13-39 12 Alt 20 U/L 7-52 13 Lipid Profile (Trig/Chol/HDL) 12/25/2016 Triglycerides 383 mg/dL 14 Cholesterol 169 mg/dL 15 HDL Cholesterol 68.5 mg/dL 16 LDL Cholesterol 24 mg/dL 17 CBC Auto Diff 09/03/2016 White Blood Count 11.1 10^3/uL High 3.5-10.8 Red Blood Count 4.98 10^6/uL 4.0-5.4 Hemoglobin [...] Cells % 0 Comp Metabolic Panel 09/03/2016 Sodium 136 mmol/L 133-145 Potassium 4.4 mmol/L 3.5-5.0 Chloride 99 mmol/L [...] >60 Egfr 87.9 >60 18 Lipid Profile (Trig/Chol/HDL) 09/03/2016 Triglycerides 639 mg/dL 19 Cholesterol 243 mg/dL 20 HDL Cholesterol 72.1 mg/dL 21 LDL Cholesterol (SEE NOTE) mg/dL 22 Laboratory test 09/03/2016 Hemoglobin A1c (Glyco 6.9 % High Less than 6.0 23 finding HGB) Laboratory test 04/27/2016 Hemoglobin A1c (Glyco 6.6 % High Less than 6.0 24 finding HGB) Lipid Profile 04/27/2016 Triglycerides 391 mg/dL 25 (Trig/Chol/HDL) Cholesterol 203 mg/dL 26 HDL Cholesterol 68.6 mg/dL 27 LDL Cholesterol 56 mg/dL 28 Basic Metabolic Panel 04/27/2016 Sodium 136 mmol/L 133-145 Potassium 4.6 mmol/L 3.5-5.0 Chloride 98 mmol/L Low 101-111 Co2 Carbon Dioxide 31 mmol/L 22-32 Anion Gap 7 mmol/L 2-11 Glucose 117 mg/dL High 70-100 Blood Urea Nitrogen 26 mg/dL High 6-24 Creatinine 0.89 mg/dL 0.51-0.95 BUN/Creatinine Ratio 29.2 High 8-20 Calcium 10.0 mg/dL 8.6-10.3 Egfr Non- 63.1 >60 Egfr 81.1 >60 29 Statin 11/06/2015 Ast (Sgot) 16 U/L 13-39 Alt (SGPT) 18 U/L 7-52 Lipid Profile (Trig/Chol/HDL) 11/06/2015 Triglycerides 237 mg/dL 30 Cholesterol 163 mg/dL 31 HDL Cholesterol 75.8 mg/dL 32 LDL Cholesterol 40 mg/dL 33 Laboratory test finding 09/21/2015 Calcium 10.1 mg/dL 8.6-10.3 Pthi 09/21/2015 Calcium (PTH Intact) 10.2 mg/dL 8.6-10.3 PTH Intact 8.8 pmol/L 1.3-9.3 Laboratory test finding 09/21/2015 Calcium Ionized 5.17 mg/dL 4.65-5.28 CBC Auto Diff 09/16/2015 White Blood Count 8.9 10^3/uL 3.5-10.8 Red Blood Count 4.72 10^6/uL 4.0-5.4 Hemoglobin [...] Cells % 0.1 Comp Metabolic Panel 09/16/2015 Sodium 136 mmol/L 133-145 Potassium 4.2 mmol/L 3.5-5.0 Chloride 98 mmol/L [...] Anion Gap 7 mmol/L 2-11 Lipid Profile (Trig/Chol/HDL) 09/16/2015 Triglycerides 552 mg/dL 35 Cholesterol 248 mg/dL 36 HDL Cholesterol 60.1 mg/dL 37 Laboratory test finding 09/16/2015 TSH (Thyroid Stim Horm) 1.17 ?IU/mL 0.34-5.60 38 Hemoglobin A1c (Glyco HGB) 6.6 % High Less than 6.0 39 Laboratory test finding 06/09/2015 C. difficile PCR SEE RESULT BELOW 40 CBC Auto Diff 06/09/2015 White Blood Count 5.9 10^3/uL 4.8-10.8 Red Blood Count 5.01 10^6/uL 4.0-5.4 Hemoglobin [...] Cells % 0 Comp Metabolic Panel 06/09/2015 Sodium 136 mmol/L 133-145 Potassium 3.7 mmol/L 3.5-5.0 Chloride 101 mmol/L [...] >60 Egfr 70.3 >60 41 Laboratory test finding 06/09/2015 Lipase 16 U/L 11.0-82.0 C Reactive Protein 67.96 mg/L High < 5.00 42 Lactic Acid 1.8 mmol/L 0.5-2.2 Urinalysis Profile 06/09/2015 Urine Color Yellow Urine Appearance Cloudy Urine Specific [place] 1.018 1.010-1.030 Urine pH 5.0 5-9 Urine [...] Urine Hyaline Casts Present Absent Laboratory test finding 06/09/2015 Urine Culture SEE RESULT BELOW 43 CBC Auto Diff 03/14/2015 White Blood Count 8.4 10^3/uL 4.8-10.8 Red Blood Count 4.98 10^6/uL 4.0-5.4 Hemoglobin [...] Blood Cells % 0 Laboratory test 03/14/2015 Hemoglobin A1c 7.2 % High Less than 6.0 44 finding (Glyco HGB) Basic Metabolic Panel 03/14/2015 Sodium 138 mmol/L 133-145 Potassium 4.5 mmol/L 3.5-5.0 Chloride 101 mmol/L 101-111 Co2 Carbon Dioxide 28 mmol/L 22-32 Anion Gap 9 mmol/L 2-11 Glucose 147 mg/dL High 70-100 Blood Urea Nitrogen 20 mg/dL 6-24 Creatinine 0.79 mg/dL 0.51-0.95 BUN/Creatinine Ratio 25.3 High 8-20 Calcium 10.3 mg/dL 8.6-10.3 Egfr Non- 72.6 >60 Egfr 93.4 >60 45 Comp Metabolic Panel 11/12/2014 Sodium 137 mmol/L 133-145 Potassium 4.7 mmol/L 3.5-5.0 Chloride 99 mmol/L [...] Egfr 93.6 >60 46 Laboratory test 11/12/2014 Hemoglobin A1c 6.8 % High Less than 6.0 47 finding CBC No Diff 11/12/2014 White Blood Count 9.9 10^3/uL 4.8-10.8 Red Blood Count 5.11 10^6/uL 4.0-5.4 Hemoglobin 14.1 g/dL 12.0-16.0 Hematocrit 42 % 35-47 Mean Corpuscular Volume 81 fL 80-97 Mean Corpuscular Hemoglobin 28 pg 27-31 Mean Corpuscular HGB Conc 34 g/dL 31-36 Red Cell Distribution Width 15 % 10.5-15 Platelet Count 226 10^3/uL 150-450 Mean Platelet Volume 9 um3 7.4-10.4 Laboratory test finding 08/28/2014 Calcium 11.0 mg/dL High 8.6-10.3 Pthi 08/28/2014 PTH Intact 5.6 pmol/L 1.3-9.3 Calcium (PTH Intact) 11.0 mg/dL High 8.6-10.3 Basic Metabolic Panel 08/28/2014 Sodium 138 mmol/L 133-145 Potassium 4.1 mmol/L 3.5-5.0 Chloride 100 mmol/L Low 101-111 Co2 Carbon Dioxide 28 mmol/L 22-32 Anion Gap 10 mmol/L 2-11 Glucose 145 mg/dL High 70-100 Blood Urea Nitrogen 19 mg/dL 6-24 Creatinine 1.10 mg/dL High 0.51-0.95 BUN/Creatinine Ratio 17.3 8-20 Egfr Non- 49.7 >60 Egfr 63.9 >60 48 Basic Metabolic Panel 08/14/2014 Sodium 136 mmol/L 133-145 Potassium 4.4 mmol/L 3.5-5.0 Chloride 98 mmol/L Low 101-111 Co2 Carbon Dioxide 31 mmol/L 22-32 Anion Gap 7 mmol/L 2-11 Glucose 95 mg/dL 70-100 Blood Urea Nitrogen 18 mg/dL 6-24 Creatinine 0.75 mg/dL 0.51-0.95 BUN/Creatinine Ratio 24.0 High 8-20 Calcium 11.2 mg/dL High 8.6-10.3 Egfr Non- 77.3 >60 Egfr 99.4 >60 49 Urinalysis Profile 08/09/2014 Urine Color Straw Urine Appearance Cloudy Urine Specific [place] 1.018 1.010-1.030 Urine pH 5.0 5-9 Urine Urobilinogen Negative Negative Urine Ketones Negative Negative Urine Protein 2+(100 mg/dL) Negative Urine Leukocytes Negative Negative Urine Blood 3+ Negative * * Negative 50 Urine Nitrite Negative Negative Urine Bilirubin Negative Negative Urine Glucose Negative Negative Urine Red Blood Cell 3+(>10/hpf) Absent Urine Squamous Epithelial Cell Present Absent Laboratory test finding 08/09/2014 C Reactive Protein 28.08 mg/L High < 5.00 51 Comp Metabolic Panel 08/09/2014 Sodium 133 mmol/L 133-145 Potassium 4.0 mmol/L 3.5-5.0 Chloride 94 mmol/L [...] >60 Egfr 73.9 >60 52 CBC Auto Diff 08/09/2014 White Blood Count 14.6 10^3/uL High 4.8-10.8 Red Blood Count 4.95 10^6/uL 4.0-5.4 Hemoglobin [...] Red Blood Cells % 0.1 Laboratory test finding 06/11/2014 Hemoglobin A1c 7.3 % High Less than 6.0 53 Lipid Profile 06/11/2014 Triglycerides 348 mg/dL 54 (Trig/Chol/HDL) Cholesterol 202 mg/dL 55 HDL Cholesterol 66.9 mg/dL 56 LDL Cholesterol 66 mg/dL 57 Urine DIP 06/11/2014 Specific [place] 1.025 High 1.01-1.02 Urine pH 5 5-6 Leukocytes NEG Neg Urine Nitrites NEG Neg Total Protein, Urine +30 High Neg Urine Glucose NORM Norm Urine Ketones NEG Neg Urobilinogen NORM Norm Urine Bilirubin NEG Neg Urine Blood 250 High Neg CBC Auto Diff 05/15/2014 White Blood Count 10.6 10^3/uL 4.8-10.8 Red Blood Count 4.95 10^6/uL 4.0-5.4 Hemoglobin [...] Cells % 0.1 Comp Metabolic Panel 05/15/2014 Sodium 137 mmol/L 133-145 Potassium 4.4 mmol/L 3.7-5.6 Chloride 98 mmol/L [...] >60 Egfr 107.7 >60 58 Laboratory test finding 05/15/2014 C Reactive Protein 28.47 mg/L High < 5.00 59 Anti Double Stranded Dna Negative Negative Cyclic Citrullinated Pept IgG <15.6 U 60 Creatine Kinase 53 U/L 10-223 Lyme Western Blot 05/15/2014 Lyme Disease IgG Ab WB Negative Negative Lyme Disease IgG Bands Present No bands detecte <SEE NOTE> kDa 61 Lyme Disease IgM Ab WB Negative Negative Lyme Disease IgM Bands Present No bands detecte <SEE NOTE> kDa 62 Lyme Disease Interpretation See Comment 63 Laboratory test finding 05/15/2014 Rheumatoid Factor <15 IU/mL <15 64 Bess (Anti-Nuclear AB) Screen Negative Negative Comp Metabolic Panel 12/07/2013 Sodium 137 mmol/L 133-145 Potassium 4.6 mmol/L 3.7-5.6 Chloride 99 mmol/L [...] 104.2 >60 65 CBC Auto Diff 12/07/2013 White Blood Count 10.2 10^3/uL 4.8-10.8 Red Blood Count 4.96 10^6/uL 4.0-5.4 Hemoglobin [...] Red Blood Cells % 0.1 Lipid Profile (Trig/Chol/HDL) 12/07/2013 Triglycerides 237 mg/dL 66 Cholesterol 217 mg/dL 67 HDL Cholesterol 72.3 mg/dL 68 LDL Cholesterol 97 mg/dL 69 Laboratory test finding 12/07/2013 TSH (Thyroid Stimulating 2.58 IU/mL 0.34-5.60 Horm) Hemoglobin A1c 7.1 % High Less than 6.0 70 Human Papilloma 06/09/2013 Human Papillomavirus Source See Comment 71 Human Papillomavirus High Risk Negative Negative 72 Laboratory test finding 06/08/2013 Cytology RUN DATE: SEE NOTE> 73 Urine DIP 06/08/2013 Leukocytes neg Neg Urine Nitrites neg Neg Urine pH 5 5-6 Total Protein, Urine 1+ High Neg Urine Glucose norm Norm Urine Ketones neg Neg Urobilinogen norm Norm Urine Bilirubin neg Neg Urine Blood 250 High Neg Specific [place] 1.025 High 1.01-1.02 CBC Auto Diff 05/04/2013 White Blood Count 10.2 10^3/uL 4.8-10.8 Red Blood Count 5.17 10^6/uL 4.0-5.4 Hemoglobin [...] Cells % 0.1 Comp Metabolic Panel 05/04/2013 Sodium 141 mmol/L 133-145 Potassium 4.3 mmol/L 3.5-5.0 Chloride 103 mmol/L [...] 84.0 >60 Egfr 108.0 >60 74 Laboratory test 05/04/2013 TSH (Thyroid Stimulating 1.90 miu/mL 0.34- 5.60 finding Horm) Lipid Profile 05/04/2013 Triglycerides 221 mg/dL High 40-200 (Trig/Chol/HDL) Cholesterol 212 mg/dL High Less than 200 HDL Cholesterol 73 mg/dL High 40-60 75 Cholesterol/HDL Ratio 2.9 Average 1-4.44 LDL Cholesterol 94.8 Less Than 100 76 Laboratory test finding 05/04/2013 Hemoglobin A1c 7.1 % High Less than 6.0 77 Laboratory test finding 05/16/2012 Hemoglobin A1c 6.8 % High Less than 6.0 78 CBC Auto Diff 01/28/2012 White Blood Count 11.1 CUMM High 4.8-10.8 Red Cell Count 5.18 CUMM 4.2-5.4 Hemoglobin 13.7 g/dL 12.0-16.0 Hematocrit 41 % 35-47 Mean Corpuscular Volume 80 um3 79-97 Mean Corpuscular Hemoglob 27 pg 27-31 Mean Corpuscular HGB Cone 33 g/dL 32-36 Redcell Distribution WDTH 14 % 10.5-15 Platelet Count 223 CUMM 150-450 Mean Platelet Volume 9.5 um3 7.4-10.4 Absolute Neutrophil Count 7.8 High 1.5-7.7 79 Comp Metabolic Panel 01/28/2012 Sodium 139 mmol/L 135-145 Potassium 3.9 mmol/L 3.5-5.0 Chloride 101 mmol/L [...] eGFR 92.9 > 60 82 Laboratory test finding 01/28/2012 TSH 1.78 MIU/ML 0.34-5.60 Lipid Profile (Trig/Chol/HDL) 01/28/2012 Triglyceride 301 mg/dL High 40- 200 Cholesterol 215 mg/dL High Less Than 200 83 High Density Lipoprotein 72 mg/dL High 40-60 84 Cholesterol/HDL Ratio 2.99 AVERAGE 1-4.44 Low Density Lipoprotein 83 mg/dL Less Than 100 85 Laboratory test finding 01/28/2012 Hemoglobin A1c 6.6 % High Less Than 6.0 86 Manual Differential 01/28/2012 Polysegmented 81 % 38-83 Neutrophil Lymphocyte 16 % Low 25-47 Monocyte 2 % 0-13 Eosinophil 1 % 0-6 RBC Morphology NORMAL 1 [id number] 2 [id number] 3 Normal Range 180 to 914 Indeterminate Range 145 to 180 Deficient Range <145 4 [id number] 5 Therapeutic target for the treatment of diabetes mellitus patients is <7% HBA1C, and in selective patients <6.0%. Please refer to [place] [employer] diabetic care guidelines for further information. 6 [id number] 7 Desirable: <150 Borderline High: 150-199 High: [...] 5 Kidney failure <15 (or dialysis) 12 [id number] 13 [id number] 14 Desirable <150 Borderline high 150-199 High [...] and in selective patients <6.0%.Please refer to [place] [employer] Diabetic care guidelines for further information. 24 Therapeutic target for the treatment of diabetes Mellitus patients is <7% HBA1C, and in selective patients <6.0%.Please refer to [place] [employer] Diabetic care guidelines for further [...] as well Copy Result to: LIAM JEWELL ([id number]) 39 Therapeutic target for the treatment of diabetes Mellitus patients is <7% HBA1C, and in selective patients <6.0%.Please refer to [place] [employer] Diabetic care guidelines for further information. 40 SEE RESULT BELOW Name: JENNI TIDWELL : [address]: Ruben Reynaga DO Acct: [id number] Unit: [id number] AGE: 69 Location: [facility] Re06/09/15 SEX: F Status: REG REF SPEC: [id number] ANDREW: 06/09/[address]: Ruben Reynaga DO REQ: [id number] RECD: 06/10/15 STATUS: RODRIGO REBOLLEDO DR: Adela Pandey TRAILER MECHANIC _ SOURCE: STOOL SPDESC: ORDERED: C. diff PCR, Stool Culture, Fecal Lactoferr Procedure Result [...] performed at Main Lab DEPARTMENT OF PATHOLOGY, [address] [place] [address] Benny Tian M.D. Director [facility] # [id number] Patient: JENNI TIDWELL Ny [id number] (Continued) Specimen: [id number] Collected: 06/09/15-1999 Received: 06/10/15-1532 (Continued) Procedure Result [...] used with this assay. * ML - [facility] ([facility]) . END OF REPORT * ML=Testing performed at Main Lab DEPARTMENT OF PATHOLOGY, [address] [place] [address] Benny Tian M.D. Director [facility] # [id number] 41 Because ethnic data is not always [...] [address]: Ruben Reynaga DO Acct: [id number] Unit: [id number] AGE: 69 Location: ED Re06/09/15 SEX: F Status: DEP ER SPEC: [id number] ANDREW: 06/09/[address]: Ruben Reynaga DO REQ: [id number] RECD: 06/09/15 STATUS: RODRIGO REBOLLEDO DR: Khadra Willett TRAILER MECHANIC _ SOURCE: URINE SPDESC: ORDERED: Urine Culture Procedure Result Verified Site Urine Culture Final 06/11/15- 711 ML Organism 1 NORMAL TRIPP [place] Count 1-10,000 (Few) CFU/ML * ML - MAIN LAB ([facility]) . END OF REPORT * ML=Testing performed at Main Lab DEPARTMENT OF PATHOLOGY, [address] [place] [address] Benny Tian M.D. Director [facility] # [id number] 44 Therapeutic target for the treatment of diabetes Mellitus patients is <7% HBA1C, and in selective patients <6.0%.Please refer to [place] [employer] Diabetic care guidelines for further [...] and in selective patients <6.0%.Please refer to [place] [employer] Diabetic care guidelines for further [...] and in selective patients <6.0%.Please refer to [place] [employer] Diabetic care guidelines for further [...] REFERENCE VALUE <20.0 (Negative) Test Performed by: [place] [address] Fruit And Vegetable Inspector: Jon Guardado M.D. 61 No bands detected [...] screening test (e.g., EIA). Test Performed by: [place] [address] Fruit And Vegetable Inspector: Jon Guardado M.D. 64 Test Performed by: [place] [address] Fruit And Vegetable Inspector: Jon Gaurdado M.D. 65 Because ethnic data is not [...] and in selective patients <6.0%.Please refer to [place] [employer] Diabetic care guidelines for further information. 71 RESULT: Ectocervical/Endocervical 72 For types 16, 18, 31, 33, 35, 39, 45, 51, 52, 56, 58, 59 and 68. Test Performed by: [facility] [address] [address] Fruit And Vegetable Inspector: Ha Frankel III, M.D. 73 RUN DATE: 06/09/13 [facility] LIVE PAGE 1 RUN TIME: [address] [place] [address] Specimen Inquiry Name: JENNI TIDWELL : [address]: Khadra Willett NP Acct: [id number] Unit: [id number] AGE: 67 Location: [facility] Re06/08/13 SEX: F Status: REG REF SPEC: [id number] ANDREW: 06/08/13-[address]: Khadra Willett NP REQ: [id number] RECD: 06/08/136 STATUS: SOUT _ ORDERED: IMAGE ANALYSIS, HPV/Thin Prep FINAL DIAGNOSIS Negative for Intraepithelial lesion or Malignancy COMMENTS: Specimen sent to [facility] in [place], [place] on 06/09/13 by TARSHA at 1209. Results will be reported separately. A. Ectocervical/Endocervical Specimen Adequacy: Satisfactory of evaluation Transformation zone component not identified Patient Information: HPV: High risk HPV DNA testing regardless of pap results. Actual Specimen Date: 06/08/13 Other Pertinent History: No History Given Signed (signature on file) NIKHIL Mena (ASCP) 06/09/13 1209 This Pap test was evaluated with the assistance of the MeetDoctorPrep Test Imaging System. Due to cytologic findings at the comparative sociology professor microscope, comprehensive manual rescreening by a Burr Bench Operator may be required. The Pap Smear is [...] performed at Main Lab DEPARTMENT OF PATHOLOGY, [address] [place] [address] Benny Tian M.D. Director [facility] Permit #[id number] 74 Because ethnic data is not always [...] and in selective patients <6.0%.Please refer to [place] [employer] Diabetic care guidelines for further information. 78 Therapeutic target for the treatment of diabetes Mellitus patients is <7% HBA1C, and in selective patients <6.0%.Please refer to [place] [employer] Diabetic care guidelines for further information. 79 Imm. NE 1 80 Anion gap measurement may be of limited value in the presence of any alkalosis, especially in a combined acid base disorder. . 81 A metabolite of Naproxen, O-desmethylnaproxen, has been shown to interfere with the [place] method for measuring total bilirubin. Samples from [...] IN SELECTIVE PATIENTS <6.0%. PLEASE REFER TO [place] [employer] DIABETIC CARE GUIDELINES FOR FURTHER INFORMATION. Procedures Date CPT Code Description Status 01/11/2018 33578 EKG, at Least 12 Leads w/Interpretation and Report Completed 06/06/2015 53543 Removal-Impacted Cerumen Completed 09/24/2011 Mammogram Completed Encounters Type Date Location Provider CPT E/M Dx Office Visit 02/08/2018 11:30a Main Office Khadra Willett FAMILY MANAGER-C 07650 E11.65 M79.1 Office Visit 01/11/2018 1:30p [facility] Khadra Willett FAMILY MANAGER-C 86652 Z00.00 E11.9 E78.5 M25.511 I83.211 Office Visit 06/10/2017 10:45a Main Office Khadra Willett FAMILY MANAGER-C 43240 S31.804A Z23 Office Visit 09/03/2016 2:30p Main Office Khadra Willett FAMILY MANAGER-C 56953 E11.9 M25.511 E66.9 E78.5 Office Visit 04/27/2016 3:00p Main Office Khadra Willett FAMILY MANAGER-C 50554 E11.9 M17.9 E78.5 Z23 Office Visit 03/03/2016 3:00p Main Office Khadra Willett FAMILY MANAGER-C 82066 M17.9 E11.9 Office Visit 01/23/2016 11:00a Main Office Shawnti R. Brennon, FAMILY MANAGER-C 06034 M79.7 Office Visit 12/19/2015 2:15p Main Office Shawnti R. Brennon, FAMILY MANAGER-C 63290 M17.9 Office Visit 11/14/2015 1:30p [place] [address] S93.401A Office Visit 11/08/2015 2:00p Main Office Shawnti R. Brennon, FAMILY MANAGER-C 43055 M79.7 M17.9 Office Visit 09/16/2015 1:30p Main Office Shawnti R. Brennon, FAMILY MANAGER-C 91563 Z00.00 M25.511 E11.9 Z23 Office Visit 03/14/2015 9:30a Main Office Shawnti R. Brennon, FAMILY MANAGER-C 32122 250.00 Office Visit 01/22/2015 11:15a Main Office Shawnti R. Brennon, FAMILY MANAGER-C 79561 054.9 Office Visit 01/11/2015 10:00a Main Office Shawnti R. Brennon, FAMILY MANAGER-C 83996 729.1 V76.10 Office Visit 12/18/2014 10:00a Main Office Shawnti R. Brennon, FAMILY MANAGER-C 74175 729.1 Office Visit 12/04/2014 10:15a Main Office Shawnti R. Brennon, FAMILY MANAGER-C 69385 844.9 Office Visit 11/12/2014 10:00a Main Office Shawnti R. Brennon, FAMILY MANAGER-C 08482 250.00 Office Visit 10/15/2014 2:45p Main Office Shawnti R. Brennon, FAMILY MANAGER-C 18172 782.9 250.00 Office Visit 08/14/2014 11:45a Main Office Shawnti R. Brennon, FAMILY MANAGER-C 96229 592.0 591 Office Visit 06/11/2014 8:45a Main Office Shawnti R. Brennon, FAMILY MANAGER-C G0438 V70.0 250.00 787.91 V72.62 V04.81 V03.82 Office Visit 05/15/2014 11:00a Main Office Shawnti R. Storm FAMILY MANAGER-C 69433 729.1 Office Visit 01/12/2014 2:00p Main Office Lauren Moya M.D. 88706 728.85 Office Visit 12/07/2013 10:00a Main Office Svetlanajake Willett FAMILY MANAGER-C 82295 250.00 Office Visit 06/08/2013 9:00a Main Office Khadra Marco RADHA Willett-C 25074 V03.82 V70.0 250.00 V03.82 Office Visit 05/04/2013 10:00a Main Office Svetlanajake WillettRADHA-C 32260 250.00 V04.81 Office Visit 01/17/2013 8:45a Main Office Adela McdonoughRADHA anderson-C 39319 451.89 Office Visit 10/18/2012 11:45a Main Office Khadra MelisaRADHA Castro-C 33297 386.11 Office Visit 09/23/2012 12:00p Main Office Svetlanajake VincentRADHA Castro-C 19829 724.5 Office Visit 09/05/2012 2:45p Main Office Svetlanajake VincentBigg Willett FAMILY MANAGER-C 54619 729.1 715.09 Office Visit 05/19/2012 10:00a Main Office Svetlanajake WillettRADHA-C 61986 250.00 296.30 V04.81 Office Visit 03/18/2012 10:00a Main Office Khadra MelisaRADHA Castro-C 81991 250.02 Office Visit 01/28/2012 2:00p Main Office Khadra MelisaRADHA Castro-C 00363 296.30 715.09 780.57 790.29 Plan of Care Future Appointment(s):04/08/2018 10:15 am - BILLY Camarena at Main [id number]/04/2018 - JEAN CARLOS CamarenaCE11.65 Type 2 diabetes mellitus with hyperglycemiaComments:will increase to 20 units of Toujeo, continue to titrate up from there ... Labs reviewed, DM poorly controlledFollow up:4 to 6 weeksRecommendations:increase your insulin to 20 units then continue to increase by 2 units every other day until your morning sugars are 80-120M79.1 MyalgiaComments:continue lyrica, encourage daily exercise as tolerated
[2018-04-15] MEDS ORDERED: Iodixanol* (CONTRAST) 320 MG/ML 100 ML SDV IV ONE (20:36)
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
[2018-04-16] MEDS ORDERED: oxyCODONE/Acetamin 5/325 MG* TAB PO ONE (00:59)
[2018-04-16 04:08] VITALS: BP 121/74
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
== END 2018-04-16 04:07 | disposition home or self-care (01) ==
LOC: ED 18:42
DX: R07.9 Chest pain, unspecified (principal); R10.9 Unspecified abdominal pain; E11.9 Type 2 diabetes mellitus without complications; Z79.84 Long term (current) use of oral hypoglycemic drugs
CPT/HCPCS: 36415; 70450; 71045; 71260; 72125; 74177; 80053; 84484; 85025; 85610; 85730; 93005; 96374; 99284; A9270-GY; J3010; Q9967

== ENCOUNTER → 2018-09-26 08:43 | Day surgery (SDC) | payer MEDICARE ==
[~2018-09-26 08:43] MED LIST: Buffered Lidocaine 1% SYRIN* 1 ML/SYRINGE INTRADERM ONE; Bupivacaine 0.25% SDV PF* 10 ML VIAL INJ ONE; Famotidine IV* 10 MG/ML 2 ML (20 mg) IV ONE; Famotidine IV* 10 MG/ML 2 ML (20 mg) ONE; Lactated Ringers 1000 ML Bag* 1,000 ML IV SCH; Lidocaine 2% PF * 5 ML VIAL ONE; Metoclopramide IV* 5 MG/ML 2 ML VIAL IV SLOW PU ONE; Metoclopramide IV* 5 MG/ML 2 ML VIAL ONE; Propofol* 10 MG/ML 20 ML BTL ONE; fentaNYL* 50 MCG/ML 2 ML VIAL (100 MCG VIAL) ONE
[2018-09-26 12:41] VITALS: BP 147/75
--- NOTE | 2018-09-26 23:01 | OP ---
DATE OF OPERATION: 09/26/18 - SDS DATE OF : 49 SURGEON: Anastacio Barber MD NUCLEAR CARDIOLOGY TECHNOLOGIST: ANKITA Monk ANESTHESIOLOGIST: Dr. Ortiz. ANESTHESIA: Local MAC. PRE-OP DIAGNOSIS: Right second metacarpophalangeal joint periarticular mass. POST-OP DIAGNOSIS: Right second metacarpophalangeal joint periarticular mass. OPERATIVE PROCEDURE: Excision of right second metacarpophalangeal joint periarticular mass. INDICATIONS: Jenni has the mass over the second MCP joint. It is bothering her, it is little tender to the touch. It has been slowly getting bigger. We talked about risks and benefits. She wants to have it excised. ESTIMATED BLOOD LOSS: 2 mL. COMPLICATIONS: None. FINDINGS: See above and below. DESCRIPTION OF PROCEDURE: Jenni was seen in the preoperative holding area. The correct side, site, and procedure were identified. We came back to the operating room where the arm was prepped and draped in the usual fashion and time-out was performed. The arm was exsanguinated with the Esmarch and the tourniquet was inflated to 250 mmHg. I had already infiltrated 0.25% Marcaine around the operative area. I made a curvilinear incision over the dorsal ulnar aspect of the right second MCP joint. Full thickness flap was raised and the periarticular mass was noted. It did have a chalky type appearance and had the appearance of gouty tophus. This was excised with the Laporte blade and the mass did track down deep to the extensor tendons. This was taken all the way down to the joint where it was amputated. The mass was handed off as a specimen. The wound was irrigated out. The small split in the extensor tendon was closed with one 3-0 PDS [id number] suture. The wound was irrigated out. The skin was closed with 4-0 nylon suture. Soft dressings were applied and she was taken to the recovery room in stable condition. [id number]/CPS #: [id number] MTDD
== END | disposition home or self-care (01) ==
LOC: OR 08:43
PROVIDERS: ATTEND Orthopaedic Surgery Hand Surgery
DX: R22.31 Localized swelling, mass and lump, right upper limb (principal); M1A.9XX1 Chronic gout, unspecified, with tophus (tophi); E11.9 Type 2 diabetes mellitus without complications; G47.33 Obstructive sleep apnea (adult) (pediatric); K21.9 Gastro-esophageal reflux disease without esophagitis; M19.90 Unspecified osteoarthritis, unspecified site; Z68.42 Body mass index [BMI] 45.0-49.9, adult; M79.7 Fibromyalgia
CPT/HCPCS: 88304; J2704; J2765; J3010; J3490

== ENCOUNTER → 2019-03-10 | Day surgery (SDC) | payer MEDICARE, OTHER ==
[~2019-03-10] MED LIST changes: +Acetaminophen TAB* 325 MG PO PRN; -Bupivacaine 0.25% SDV PF* 10 ML VIAL INJ ONE; -Famotidine IV* 10 MG/ML 2 ML (20 mg) IV ONE; +KETAMINE HCL* 50 MG/ML 10 ML VIAL ONE; -Metoclopramide IV* 5 MG/ML 2 ML VIAL IV SLOW PU ONE; -Metoclopramide IV* 5 MG/ML 2 ML VIAL ONE; +Midazolam* 1 MG/ML 2 ML VIAL (2 MG) ONE; +Naloxone* 0.4 MG/ML 1 ML VIAL IV PRN; +Ondansetron INJ* 2 MG/ML VIAL IV PRN; +Ondansetron INJ* 2 MG/ML VIAL ONE; +diPHENhydraMINE IV* 50 MG/ML 1 ml VIAL (BENADRYL) ONE
[2019-03-10 12:08] VITALS: BP 136/78
--- NOTE | 2019-03-10 13:20 | PRO ---
CC: Dr. Howie Adorno* PROCEDURE REPORT: DATE OF PROCEDURE: 03/10/19 PROCEDURE: Colonoscopy with Jumbo and snare polypectomy x10. REFERRING PROVIDER: Dr. Howie Adorno. INDICATION: The patient had a colonoscopy in 2014 with removal of 3 tubular adenomas. Repeat recommended in 3 years. Patient is overdue for this exam. MEDICATIONS GIVEN: By Anesthesia. DESCRIPTION OF PROCEDURE: Full disclosure of risks was reviewed with the patient as detailed on the consent form. The patient was placed in the left lateral decubitus position and monitored with continuous pulse oximetry, capnography, interval blood pressure monitoring, and direct observation. After anorectal examination was performed, the adult colonoscope was inserted into the rectum and slowly advanced forward to the level of the terminal ileum. Complete views of the cecum were obtained including the medial wall between the IC valve and the appendiceal orifice. Quality of the prep was fair. Photodocumentation of landmarks obtained. Careful inspection was made as the colonoscope was withdrawn. Retroflexion was performed in the rectum. Findings and interventions described below. FINDINGS: Anorectal exam was unremarkable. The scope was inserted into the rectum and slowly advanced forward. The procedure was moderately challenging due to significant looping of the colonoscope. Abdominal pressure was helpful in advancing the scope forward and minimizing loop formation. Once in the cecum , the terminal ileum was briefly intubated. Ileal mucosa appeared normal. In the cecum, there were 2 polyps. These polyps measure 4 mm each and were removed with cold snare. In the hepatic flexure, there were 3 polyps. These polyps ranged from 4 to 6 mm. All of these polyps were removed with cold snare. In the transverse colon, there were 2 polyps measuring 4 mm and 6 mm. These polyps were removed with cold snare. In the splenic flexure, there was a 6-mm polyp removed with cold snare. In the descending colon, there was a 4-mm polyp removed with 2 passes of Jumbo biopsy forceps. There was also a 4-mm polyp in this area removed with cold snare. Retroflexion in the rectum revealed small internal hemorrhoids. Scope was then withdrawn from the patient. The patient tolerated the procedure well and was recovered in the GI recovery area. IMPRESSION: 1. Complete colonoscopy to terminal ileum. 2. Ten polyps removed as above. 3. Internal hemorrhoids. FOLLOWUP: 1. Await pathology. 2. Anticipate repeat colonoscopy in 3 years. 3. Recommend conservative management for hemorrhoids. Thank you very much for this referral. [id number]/ISRA #: [id number] CHRISTOPHER
== END | disposition home or self-care (01) ==
LOC: OR 07:16
PROVIDERS: ATTEND Internal Medicine Gastroenterology
DX: Z09 Encounter for follow-up examination after completed treatment for conditions other than malignant neoplasm (principal); Z86.010 Personal history of colon polyps; D12.0 Benign neoplasm of cecum; D12.4 Benign neoplasm of descending colon; D12.3 Benign neoplasm of transverse colon; G47.33 Obstructive sleep apnea (adult) (pediatric); E11.9 Type 2 diabetes mellitus without complications; Z79.4 Long term (current) use of insulin; Z68.42 Body mass index [BMI] 45.0-49.9, adult; E21.3 Hyperparathyroidism, unspecified
CPT/HCPCS: 88305; J1200; J2250; J2405; J2704; J3010

== ENCOUNTER 2020-02-21 12:06 | Observation (INO) ==
[2020-02-21 15:11] LABS: ABS Basophils 0.1 10^3/ul (0-0.2); ABS Eosinophils 0.3 10^3/ul (0-0.6); ABS Lymphocytes 2.9 10^3/ul (1.0-4.8); ABS Monocytes 0.5 10^3/ul (0-0.8); ABS Neutrophils 7.4 10^3/ul (1.5-7.7); Eosinophil % 2.3 %; Hematocrit 41 % (35-47); Hemoglobin 13.7 g/dL (12.0-16.0); Lymphocyte % 25.7 %; Mean Corpuscular HGB Conc 34 g/dL (31-36); Mean Corpuscular Hemoglobin 27 pg (27-31); Mean Corpuscular Volume 80 fL (80-97); Mean Platelet Volume 8.3 fL (7.4-10.4); Nucleated Red Blood Cells % 0.1; Platelet Count 164 10^3/uL (150-450); Red Blood Count 5.07 10^6 /uL (3.70-4.87); Red Cell Distribution Width 15 % (10-15); White Blood Count 11.2 10^3/uL (3.5-10.8)
[2020-02-21 15:28] LABS: Troponin I 0.01 ng/mL (<0.03)
[2020-02-21 15:29] LABS: Albumin 3.8 g/dL (3.2-5.2); Albumin/Globulin Ratio 1.1 (1-3); BUN/Creatinine Ratio 22.6 (8-20); Calcium 10.7 mg/dL (8.6-10.3); EGFR African American 80.6 (>60); EGFR Non-African American 66.6 (>60); Globulin 3.5 g/dL (2-4); Potassium 4.4 mmol/L (3.5-5.0); Total Bilirubin 0.4 mg/dL (0.2-1.0); Total Protein 7.3 g/dL (6.4-8.9)
[2020-02-21 15:32] LABS: INR 1.06 (0.82-1.09)
[2020-02-21] MEDS ORDERED: Iodixanol (CONTRAST) 320 MG/ML 100 ML SDV IV ONE (15:58)
[2020-02-21] MEDS ORDERED: NS 0.9% 1000 ml BAG 1,000 ML IV SCH (16:30)
[2020-02-21] MEDS ORDERED: Heparin DRIP 25,000 UNITS BAG 25,000 UNITS/500 ML BAG IV SCH (16:30)
[2020-02-21] MEDS ORDERED: Dextrose 50% Syringe 50 ml 25 GM/50 ML SYRINGE IV PUSH PRN (16:32)
[2020-02-21] MEDS ORDERED: NS 0.9% 250 ml 250 ML IV ONE (16:34)
[2020-02-21] MEDS ORDERED: Heparin 5000 UNITS/ML 1 mL VIAL IV SCH (17:00)
[2020-02-21 22:44] LABS: Urine Appearance Cloudy; Urine Bilirubin Negative (Negative); Urine Blood Negative (Negative); Urine Color Yellow; Urine Glucose Negative (Negative); Urine Ketones Negative (Negative); Urine Nitrite Negative (Negative); Urine Protein 1+(30 mg/dL) (Negative); Urine Specific Gravity 1.043 (1.010-1.030); Urine Urobilinogen Negative (Negative)
[2020-02-21 22:48] LABS: Urine Bacteria 1+ (Absent); Urine Red Blood Cell Absent (Absent); Urine Squamous Epithelial Cell Present (Absent); Urine White Blood Cell Absent (Absent)
[2020-02-22 04:59] LABS: ABS Basophils 0.1 10^3/ul (0-0.2); ABS Eosinophils 0.3 10^3/ul (0-0.6); ABS Lymphocytes 2.4 10^3/ul (1.0-4.8); ABS Monocytes 0.5 10^3/ul (0-0.8); ABS Neutrophils 5.5 10^3/ul (1.5-7.7); Eosinophil % 3.7 %; Hematocrit 38 % (35-47); Lymphocyte % 27.3 %; Mean Corpuscular HGB Conc 34 g/dL (31-36); Mean Corpuscular Hemoglobin 27 pg (27-31); Mean Corpuscular Volume 80 fL (80-97); Mean Platelet Volume 8.2 fL (7.4-10.4); Nucleated Red Blood Cells % 0.1; Platelet Count 158 10^3/uL (150-450); Red Cell Distribution Width 15 % (10-15); White Blood Count 8.8 10^3/uL (3.5-10.8)
[2020-02-22 05:16] LABS: BUN/Creatinine Ratio 21.7 (8-20); Calcium 9.5 mg/dL (8.6-10.3); EGFR African American 101.2 (>60); EGFR Non-African American 83.6 (>60); Potassium 4.1 mmol/L (3.5-5.0)
[2020-02-22] MEDS ORDERED: DULoxetine DR 20 mg CAP PO SCH (09:00)
[2020-02-22] MEDS ORDERED: Insulin GLARGINE 100 un/ml 10 ml VIAL SUBCUT SCH (09:00)
[2020-02-22] MEDS ORDERED: Perflutren Lipid Microsphere 3 ML VIAL ONE (11:00)
[2020-02-22 16:09] VITALS: BP 152/81
== END 2020-02-22 19:10 | disposition home or self-care (01) ==
LOC: MED 12:06 → ED 12:06 → MED 18:13
PROVIDERS: ADMIT Internal Medicine; ATTEND Internal Medicine